=== PATIENT | female | born 1965 | race Hispanic/Latino ===

== ENCOUNTER 2017-01-03 19:47 | Inpatient (IN) | payer MEDICARE, BC ==
--- NOTE | 2017-01-03 20:12 | ED PDOC ---
Arrival/HPI - General Chief Complaint: Syncope Time Seen by Provider: 01/03/17 20:02 Historian: Patient - History of Present Illness Narrative History of Present Illness (Text): 01/03/17 20:09 A 51 year old female presents to the emergency department complaining of near syncopal sensation, fatigue, and weakness for 1-2 weeks. Patient denies of any chest pain, shortness of breath, dyspnea upon exertion, or any other complaints. PMD: Dr. Liu Time/Duration: < week (1-2 weeks) Symptom Onset: Gradual Symptom Course: Unchanged Past Medical History - Provider Review Nursing Documentation Reviewed: Yes - Infectious Disease Hx of Infectious Diseases: None - Cardiac Hx Pacemaker: No - Pulmonary Hx Respiratory Disorders: No - Neurological Hx Paralysis: No Other/Comment: h/o lyme disease - HEENT Hx HEENT Disorder: No - Renal Hx Renal Disorder: Yes Hx Pyelonephritis: Yes (11-29-15) Other/Comment: h/o nephrostomy - Endocrine/Metabolic Hx Endocrine Disorders: Yes Hx Hyperthyroidism: Yes Other/Comment: nick's dx - Hematological/Oncological Hx Blood Transfusions: No (REFUSED AT ONE TIME) - Integumentary Hx Dermatological Disorder: No - Musculoskeletal/Rheumatological Hx Musculoskeletal Disorders: Yes (LYME) - Gastrointestinal Hx Gastrointestinal Disorders: No (CONSTIPATION) - Genitourinary/Gynecological Hx Genitourinary Disorders: (FIBROIDS) Other/Comment: L hydronephrosis - Psychiatric Hx Emotional Abuse: No Hx Physical Abuse: No Hx Substance Use: No - Past Surgical History Past Surgical History: Non-Contributing - Surgical History Other/Comment: nephrostomy - Anesthesia Hx Anesthesia: Yes Hx Anesthesia Reactions: Yes (AGITATION) - Suicidal Assessment Feels Threatened In Home Enviroment: No Family/Social History - Physician Review Nursing Documentation Reviewed: Yes Family/Social History: No Known Family HX Smoking Status: Never Smoked Hx Alcohol Use: No Hx Substance Use: No Allergies/Home Meds Allergies/Adverse Reactions: Allergies No Known Allergies Allergy (Verified 12/29/15 11:53) Home Medications: Home Meds Medication Instructions Recorded Confirmed traMADol [Ultram] 50 mg PO PRN PRN 12/29/15 01/04/17 Alprazolam [Xanax] 0.5 mg PO HS 01/04/17 01/04/17 Buprenorphine HCl/Naloxone HCl 2 mg PO DAILY 01/04/17 01/04/17 [Suboxone 2 mg-0.5 mg Sl Film] Levothyroxine [Synthroid] 25 mcg PO DAILY 01/04/17 01/04/17 Lisdexamfetamine Dimesylate 30 mg PO DAILY 01/04/17 01/04/17 [Vyvanse] Venlafaxine [Effexor XR] 150 mg PO DAILY 01/04/17 01/04/17 Physical Exam - Physical Exam Narrative Physical Exam (Text): 01/03/17 20:08 - Review of Systems Constitutional: Fatigue. absent: Weight Change, Fevers Eyes: Normal ENT: denies sore throat, denies tristhmus Respiratory: Normal. absent: SOB, Cough, Sputum Cardiovascular: Near Syncopal episode. absent: Chest Pain, Palpitations Gastrointestinal: Normal. absent: Abdominal Pain, Diarrhea, Nausea, Vomiting Genitourinary: Normal. absent: Dysuria, Frequency, Hematuria, vaginal bleeding Musculoskeletal: Normal. absent: Arthralgias, Back Pain, Neck Pain Skin: no rashes, no erythema Neurological: Focal Weakness Endocrine: Normal Hemo/Lymphatic: Normal Psychiatric: No suicidal or homicidal ideations Physical exam Patient appears age appropriate in no distress, speaking full sentences without difficulty - Systems Exam Head: Present: Atraumatic, Normocephalic Pupils: Present: PERRL Extroacular Muscles: Present: EOMI Conjunctiva: Present: Normal Mouth: Present: Moist Mucous Membranes Neck: Present: Normal Range of Motion. No: MIDLINE TENDERNESS, Paraspinal Tenderness Respiratory/Chest: Present: Clear to Auscultation, Good Air Exchange. No: Respiratory Distress, Accessory Muscle Use, Tachypneic Cardiovascular: Present: Regular Rate and Rhythm, Normal S1, S2, Peripheal Pulses Present. No: Murmurs Abdomen: Present: Normal Bowel Sounds. No: Tenderness, Distention, Peritoneal Signs, Rebound, Guarding Back: Present: Normal Inspection. No: Midline Tenderness, Paraspinal Tenderness Upper Extremity: Present: Normal Inspection. No: Cyanosis, Edema Lower Extremity: Present: Normal Inspection. No: Edema Neurological: Present: GCS=15, Speech Normal, cranial nerves II through XII fully intact with no cerebellar abnormality, neurosensory fully intact. No focal neurological deficits. Skin: Present: Warm, Dry, Normal Color. Eczematous appearing rash over patient' s chin Lymphatic: Present: OX3, NI, NC Psychiatric: Present: Alert, Oriented x 3, Normal Insight, Normal Concentration Vital Signs Reviewed: Yes Vital Signs Temp Pulse Resp BP Pulse Ox 01/04/17 11:00 76 16 142/85 98 01/04/17 07:58 80 18 134/87 98 01/04/17 03:30 98.2 F 76 16 124/76 99 01/04/17 00:30 92 H 18 128/61 98 01/03/17 20:31 98.5 F 97 H 18 131/64 94 L Temperature: Afebrile Blood Pressure: Normal Pulse: Regular Respiratory Rate: Normal Appearance: Positive for: Well-Appearing Pain Distress: None Mental Status: Positive for: Alert and Oriented X 3 Medical Decision Making ED Course and Treatment: 01/03/17 20:12 Impression: 51 year old female with near syncopal sensation, fatigue, and weakness. No acute findings on physical examination. Plan: -- Head CT -- Chest X-ray -- Labs -- Reassess and disposition Prior Visits: Notes and results from previous visits were reviewed. Patient was last seen in the emergency department on 11/29/2015 for left flank pain. Patient was admitted. Progress Notes: EKG shows NSR at [address]-segment elevations, normal intervals. Interpreted by me. Dr. Mendez brought in patient and said to place under observation under her service on tele for near syncope w/u. Patient is aware and agrees with plan. 01/04/17 00:13 CT Head Without Intravenous Contrast : Creator : KELECHI JAIN FINDINGS: Brain: No acute intracranial hemorrhage. No significant white matter disease. No edema. Ventricles: No significant ventriculomegaly. Bones: No acute displaced fracture. Sinuses: Unremarkable as visualized. No acute sinusitis. Mastoid air cells: Unremarkable as visualized. No mastoid effusion. IMPRESSION: No acute intracranial hemorrhage, or suspicious mass effect. - Lab Interpretations Lab Results: 01/03/17 21:15 01/03/17 21:15 Lab Results 01/03/17 21:18: POC Glucose (mg/dL) 97 01/03/17 21:15: Free T4 1.26, TSH 3rd Generation 1.25 01/03/17 21:15: Sodium 143, Potassium 3.8, Chloride 103, Carbon Dioxide 31, Anion Gap 13, BUN 11, Creatinine 1.0, Est GFR ( Amer) > 60, Est GFR (Non- Af Amer) 59, Random Glucose 82, Calcium 9.8, Total Bilirubin 0.4, AST 31, ALT 26 , Alkaline Phosphatase 60, Lactate Dehydrogenase 538, Total Creatine Kinase 120 , Troponin I < 0.01, Total Protein 7.4, Albumin 4.5, Globulin 2.9, Albumin/ Globulin Ratio 1.6 01/03/17 21:15: PT 11.2, INR 1.04, APTT 27.1 01/03/17 21:15: WBC 6.4, RBC 4.14, Hgb 12.6, Hct 36.5, MCV 88.2, MCH 30.4, MCHC 34.5, RDW 12.8, Plt Count 241, MPV 9.7, Gran % 59.3, Lymph % (Auto) 32.6, [place] % (Auto) 7.3 H, Eos % (Auto) 0.5 L, Baso % (Auto) 0.3, Gran # 3.81, Lymph # 2.1 , Berks # 0.5, Eos # 0.0, Baso # 0.02 - RAD Interpretation Radiology Orders: 01/03/17 20:03 HEAD W/O CONTRAST [CT] Stat 01/03/17 22:26 CHEST PORTABLE [RAD] Stat - Medication Orders Current Medication Orders: Acetaminophen (Tylenol 325mg Tab) 650 mg PO Q4 PRN PRN Reason: Pain, Mild (1-3) Last Admin: 01/05/17 15:01 Dose: 650 mg [facility] Pain/Vitals Document 01/05/17 15:01 JORDYN (Rec: 01/05/17 15:02 [id number] Pain Reassessment Is This A Pain ReAssessment? No Sleep Is patient sleeping during reassessment? No Presence of Pain Presence of Pain Yes Pain Scale Used Pain Scale Used Numeric Location Left, Right or Bilateral Left Pain Location Body Site Neck Description Constant Intensity 6 Pain Behavior Irritability Aggravating Factors None Re-Assess: [facility] Pain/Vitals Document 01/05/17 16:01 JORDYN (Rec: 01/05/17 18:30 JORDYN [facility] [id number]) Pain Reassessment Is This A Pain ReAssessment? Yes Sleep Is patient sleeping during reassessment? No Presence of Pain Presence of Pain Yes Pain Scale Used Pain Scale Used Numeric Location Left, Right or Bilateral Bilateral Pain Location Body Site Neck Intensity 5 Scale Used Numeric Alprazolam (Xanax) 0.25 mg PO Q8H PRN; Protocol PRN Reason: Anxiety Stop: 01/11/17 08:31 Last Admin: 01/04/17 10:59 Dose: 0.25 mg Clonazepam (Klonopin) 0.5 mg PO BID [facility] PRN Reason: Protocol Last Admin: 01/07/17 09:29 Dose: 0.5 mg Comments: Patient only takes 0.25 Behavioural Document 01/07/17 09:29 (Rec: 01/07/17 09:29 [id number]) Maintenance Maintenance Dose Yes Clotrimazole (Lotrimin 1%) 0 gm TOP BID [facility] Last Admin: 01/07/17 09:30 Dose: 1 applic Home Med (Home Med) 0.5 unit SL DAILY PRN PRN Reason: Pain, severe (8-10) Cefazolin Sodium (Ancef 1gm In Ns) 1 gm in 100 mls @ 100 mls/hr IVPB Q8 ASHLEE PRN Reason: Protocol Levothyroxine Sodium (Synthroid) 25 mcg PO 0600 [facility] Last Admin: 01/07/17 06:46 Dose: 25 mcg Mupirocin (Bactroban Ointment) 0 gm TOP BID [facility] Last Admin: 01/07/17 09:28 Dose: 1 applic Polyethylene Glycol (Miralax) 17 gm PO DAILY [facility] Tizanidine HCl (Zanaflex) 4 mg PO HS [facility] Last Admin: 01/06/17 22:25 Dose: 4 mg Venlafaxine HCl (Effexor Xr) 150 mg PO DAILY [facility] Last Admin: 01/07/17 09:29 Dose: 150 mg Discontinued Medications Home Med (Home Med) 1 unit PO PRN PRN PRN Reason: Pain, moderate (4-7) Home Med (Home Med) 0.5 unit PO DAILY PRN PRN Reason: Pain, severe (8-10) Ibuprofen (Motrin Tab) 600 mg PO TID [facility] Last Admin: 01/06/17 14:32 Dose: Not Given Non-Admin Reason: Patient Refused Suboxone 0.5 Mg ( (Home Med)) 0.5 mg PO DAILY PRN PRN Reason: Pain, severe (8-10) Polyethylene Glycol (Miralax) 17 gm PO DAILY PRN PRN Reason: Constipation Last Admin: 01/05/17 22:44 Dose: 17 gm Tramadol HCl (Ultram) 50 mg PO Q8H PRN PRN Reason: Pain, moderate (4-7) Last Admin: 01/04/17 21:07 Dose: 50 mg MAR Pain Assessment Document 01/04/17 21:07 [facility] (Rec: 01/04/17 21:07 [facility] [id number]) Pain Reassessment Is this a pain reassessment? No Sleep Is patient sleeping during reassessment? No Presence of Pain Presence of Pain Yes Pain Scale Used Pain Scale Used Numeric Location Pain Location Body Site Generalized Description Description Chronic Intensity of Pain at present 5 - Scribe Statement The provider has reviewed the documentation as recorded by the Dianaibjennifer Chang Provider Scribe Attestation: All medical record entries made by the Scribe were at my direction and personally dictated by me. I have reviewed the chart and agree that the record accurately reflects my personal performance of the history, physical exam, medical decision making, and the department course for this patient. I have also personally directed, reviewed, and agree with the discharge instructions and disposition. Disposition/Present on Arrival - Present on Arrival Any Indicators Present on Arrival: No History of DVT/PE: No History of Uncontrolled Diabetes: No Urinary Catheter: No History of Decub. Ulcer: No History Surgical Site Infection Following: None - Disposition Have Diagnosis and Disposition been Completed?: Yes Diagnosis: Near syncope Disposition: HOSPITALIZED Disposition Time: 20:12 Patient Plan: Observation Condition: FAIR
[2017-01-03 21:38] VITALS: BMI 40.7
[2017-01-03] MEDS ORDERED: SUBOXONE PO PRN (21:39)
[2017-01-03 21:40] LABS: ALB/GLOB RATIO 1.6 (1.1-1.8); ALKALINE PHOSPHATASE 60 U/L (38-126); ALT/SGPT 26 U/L (7-56); AST/SGOT 31 U/L (14-36); BILIRUBIN,TOTAL 0.4 mg/dL (0.2-1.3); BLOOD UREA NITROGEN 11 mg/dL (7-21); CALCIUM 9.8 mg/dL (8.4-10.5); CARBON DIOXIDE 31 mmol/L (21-33); CHLORIDE 103 mmol/L (98-107); GFR AFRICAN-AMERICAN > 60; GLUCOSE,RANDOM 82 mg/dL (70-110); POTASSIUM 3.8 mmol/L (3.6-5.0); SODIUM 143 mmol/L (132-148); TOTAL PROTEIN 7.4 g/dL (5.8-8.3)
[2017-01-03] MEDS ORDERED: POLYETHYLENE GLYCOL 3350 17 GM/Dose PACKET PO PRN (21:43)
[2017-01-03 21:47] LABS: BASO # 0.02 K/mm3 (0.0-2.0); BASO % 0.3 % (0.0-3.0); EOS % 0.5 % (1.5-5.0); GRAN # 3.81 (1.4-6.5); GRAN % 59.3 % (50.0-68.0); HEMATOCRIT 36.5 % (36.0-48.0); LYMPH # 2.1 (1.2-3.4); LYMPH % 32.6 % (22.0-35.0); MEAN CELL VOLUME 88.2 fl (80.0-105.0); MEAN CORPUSCULAR HEMOGLOBIN 30.4 pg (25.0-35.0); MEAN CORPUSCULAR HGB CONC 34.5 g/dl (31.0-37.0); MEAN PLATELET VOLUME 9.7 fl (7.0-11.0); MONO # 0.5 (0.1-0.6); MONO % 7.3 % (1.0-6.0); RED CELL DISTRIBUTION WIDTH 12.8 % (11.5-14.5); WHITE BLOOD COUNT 6.4 10^3/ul (4.5-11.0)
[2017-01-03 21:54] LABS: INR 1.04 (0.93-1.08); PARTIAL THROMBOPLASTIN TIME 27.1 Seconds (23.7-30.8)
[2017-01-03 22:07] LABS: TROPONIN I < 0.01 ng/mL
[2017-01-03 22:09] LABS: FREE T4 1.26 ng/dL (0.78-2.19)
[2017-01-03 22:23] LABS: THYROID STIMULATING HORMONE 1.25 mIU/mL (0.46-4.68)
--- NOTE | 2017-01-03 23:27 | CT ---
EXAM: CT Head Without Intravenous Contrast CLINICAL HISTORY: 51 years old, female; Signs and symptoms; Syncope and collapse; Additional info: Near syncope TECHNIQUE: Axial computed tomography images of the head/brain without intravenous contrast. All CT scans at this facility use one or more dose reduction techniques, viz.: automated exposure control; ma/kV adjustment per patient size (including targeted exams where dose is matched to indication; i.e. head); or iterative reconstruction technique. COMPARISON: No relevant prior studies available. FINDINGS: Brain: No acute intracranial hemorrhage. No significant white matter disease. No edema. Ventricles: No significant ventriculomegaly. Bones: No acute displaced fracture. Sinuses: Unremarkable as visualized. No acute sinusitis. Mastoid air cells: Unremarkable as visualized. No mastoid effusion. IMPRESSION: No acute intracranial hemorrhage, or suspicious mass effect.
--- NOTE | 2017-01-04 02:42 | HP ---
This is Mckenna Miranda's admission to the telemetry floor. For Dr. Liu. CHIEF COMPLAINT: Presyncope. HISTORY OF PRESENT ILLNESS: The patient is a 51-year-old female who presented to the Dr. Liu's office this evening reporting fatigue, weakness with presyncopal type sensation almost passing out, lightheadedness for approximately 1-2 weeks, and getting worse with associated weakness. With this, the patient was evaluated in the office and recommended to be brought to the emergency room for admission evaluation. The patient is reporting that she has had treatment in the past for exposure to bedbugs that were in her home in [place] for which she then was treated after she left the area and went to [place] and treated there with permethrin and another medication. She reports that this was in July with return in October to [place] with a further exposure, but again to the same disease process with second treatment also recommended and given with the lotion only. Since that time, she has thought treatment from different medical practitioners in the area with recommendations from one physician for her to have an infectious disease evaluation for parasite infestation ?. At present, the patient is to be admitted for evaluation of above symptoms with the patient unsafe to possibly to be driving her car at this point with the patient known to have suffered from positive findings for Lyme disease in the past with neurologic symptoms. PAST MEDICAL HISTORY: Significant for elevated CA125 testing with follow up with Dr. 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 Bradley Trevino and left pyelonephritis. History of opioid dependence after being prescribed treatment for pain for ankle surgery. Hypothyroidism. ALLERGIES: NO KNOWN ALLERGIES. MEDICATIONS: Include Suboxone, Synthroid, tramadol, and Flexeril p.r.n. FAMILY HISTORY AND SOCIAL HISTORY: Nonsmoker. Nonethanolic. 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 No children. . REVIEW OF SYSTEMS: A 12-point review of systems was done negative to questions except as above. Except for the patient now reporting that she has facial lesions, which appeared to be impetiginous since she reports after she had anesthesia with mask placed over her face in the past with the patient's nonpruritic. She also reports travel to the [place] in April of this year. PHYSICAL EXAMINATION: VITAL SIGNS: Temperature 98.5, pulse 97, respirations 18, blood pressure 131/64, and pulse ox 94%. HEENT: She has what appear to be pustular cystic changes to her chin and cheeks bilaterally with isolated changes, skin changes to her arms, legs and abdomen. NECK: Supple. HEART: Tachy rate, regular rhythm. LUNGS: Clear. ABDOMEN: Soft and nontender. EXTREMITIES: No edema. SKIN: Warm and dry except for what appear to be impetiginous lesions of her face. NEUROLOGIC: Awake, alert, and oriented x3. LABORATORY DATA: The patient's labs were done and will be reviewed upon return with chem metabolic panel within normal limits. Troponin pending. ASSESSMENT: For this patient is that of presyncope rule out cardiology versus neurologic etiology, impetigo rule out parasitic infestation, chronic pain, history of pyelonephritis, status post stenting with percutaneous nephrostomy tube, history of anemia with history of hypothyroidism with Leopoldo's thyroiditis, history of Lyme disease, and constipation. PLAN: Plan for this patient after conservation with Dr. Liu is to continue present medical regimen with consult with Dr. Rutledge, neurology; Dr. Loya, cardiology; and Dr. Arredondo, infectious disease. We will continue her Suboxone nonformulary with Synthroid. We will check TSH and her labs. We will offer tramadol for moderate pain with MiraLax as needed for constipation. We will also give Bactroban topical to her chin and face lesions with further workup and testing and antibiotics as per Dr. Arredondo as indicated monitor clinically with labs. Alonso Mendez MD
[2017-01-04 07:55] LABS: BASO # 0.03 K/mm3 (0.0-2.0); BASO % 0.5 % (0.0-3.0); EOS # 0.1 (0.0-0.7); EOS % 1.2 % (1.5-5.0); GRAN # 3.49 (1.4-6.5); GRAN % 59.7 % (50.0-68.0); HEMATOCRIT 34.2 % (36.0-48.0); LYMPH # 1.8 (1.2-3.4); LYMPH % 30.1 % (22.0-35.0); MEAN CELL VOLUME 87.5 fl (80.0-105.0); MEAN CORPUSCULAR HEMOGLOBIN 30.4 pg (25.0-35.0); MEAN CORPUSCULAR HGB CONC 34.8 g/dl (31.0-37.0); MEAN PLATELET VOLUME 9.5 fl (7.0-11.0); MONO # 0.5 (0.1-0.6); MONO % 8.5 % (1.0-6.0); RED CELL DISTRIBUTION WIDTH 12.8 % (11.5-14.5); WHITE BLOOD COUNT 5.9 10^3/ul (4.5-11.0)
[2017-01-04] MEDS: Levothyroxine 25 MCG TAB PO SCH (08:05)
[2017-01-04 08:26] LABS: ALB/GLOB RATIO 1.5 (1.1-1.8); ALKALINE PHOSPHATASE 58 U/L (38-126); ALT/SGPT 23 U/L (7-56); AST/SGOT 29 U/L (14-36); BILIRUBIN,TOTAL 0.6 mg/dL (0.2-1.3); BLOOD UREA NITROGEN 10 mg/dL (7-21); CALCIUM 9.3 mg/dL (8.4-10.5); CARBON DIOXIDE 30 mmol/L (21-33); CHLORIDE 104 mmol/L (98-107); GFR AFRICAN-AMERICAN > 60; GLUCOSE,RANDOM 81 mg/dL (70-110); POTASSIUM 3.9 mmol/L (3.6-5.0); SODIUM 142 mmol/L (132-148); TOTAL PROTEIN 6.8 g/dL (5.8-8.3)
--- NOTE | 2017-01-04 08:30 | RAD ---
HISTORY: admission COMPARISON: 02/26/2009 FINDINGS: LUNGS: The lungs are well inflated and clear of. PLEURA: No significant pleural effusion identified, no pneumothorax apparent. CARDIOVASCULAR: Normal. OSSEOUS STRUCTURES: No significant abnormalities. VISUALIZED UPPER ABDOMEN: Normal. OTHER FINDINGS: None. IMPRESSION: No active pulmonary disease.
[2017-01-04] MEDS ORDERED: SUBOXONE PO PRN (12:52)
[2017-01-04] MEDS ORDERED: Home Med 1 UNIT PO PRN ×2 (14:36→14:52)
[2017-01-04] MEDS ORDERED: SUBOXONE 8 MG SL PRN (15:03)
--- NOTE | 2017-01-04 16:04 | CP.PCM.CON ---
History of Present Illness - History of Present Illness History of Present Illness: 51 year old female with PMH of apparent Lyme disease infection, Nick thyroid disease, history of sepsis due to E. coli pyelonephritis S/P nephrostomy tube placement (2015), history of depression, came in to [facility] complaining of generalized fatigue and weakness for the past 2 weeks. She was apparently in [place] for a few months and while she was there, was complaining of having skin lesions which were pruritic and was apparently treated for bed bugs with Permethrin cream and Ivermectin. Since taking the Ivermectin she has been complaining of bumps and lumps on her legs, and posterior trunk which occasionally become painful. She has apparently been bitten by quite a few bugs over several months. She denies fever or chills, no nausea or vomiting, no headache or dizziness, no abdominal pain, no diarrhea, no dysuria. She was seen in a hospital and had to have anethesia given and she had a ventimask placed over her face, and now she is complaining that she has occasionally painful erythematous skin lesions on her face. Infectious Diseases consult is requested to further evaluate and manage. Review of Systems - Review of Systems All systems: reviewed and no additional remarkable complaints except (as per HPI ) Past Patient History - Infectious Disease Hx of Infectious Diseases: None - Past Social History Smoking Status: Never Smoked - CARDIAC Hx Pacemaker: No - PULMONARY Hx Respiratory Disorders: No - NEUROLOGICAL Hx Paralysis: No Other/Comment: h/o lyme disease - HEENT Hx HEENT Problems: No - RENAL Hx Chronic Kidney Disease: Yes Hx Pyelonephritis: Yes (11-29-15) Other/Comment: h/o nephrostomy - ENDOCRINE/METABOLIC Hx Endocrine Disorders: Yes Hx Hyperthyroidism: Yes Other/Comment: nick's dx - HEMATOLOGICAL/ONCOLOGICAL Hx Blood Transfusions: No (REFUSED AT ONE TIME) - INTEGUMENTARY Hx Dermatological Problems: No - MUSCULOSKELETAL/RHEUMATOLOGICAL Hx Musculoskeletal Disorders: Yes (LYME) - GASTROINTESTINAL Hx Gastrointestinal Disorders: No (CONSTIPATION) - GENITOURINARY/GYNECOLOGICAL Hx Genitourinary Disorders: (FIBROIDS) Other/Comment: L hydronephrosis - PSYCHIATRIC Hx Emotional Abuse: No Hx Physical Abuse: No Hx Substance Use: No - SURGICAL HISTORY Other/Comment: nephrostomy - ANESTHESIA Hx Anesthesia: Yes Hx Anesthesia Reactions: Yes (AGITATION) Meds Allergies/Adverse Reactions: Allergies Allergy/AdvReac Type Severity Reaction Status Date / Time No Known Allergies Allergy Verified 12/29/15 11:53 - Medications Medications: Current Medications Acetaminophen (Tylenol 325mg Tab) 650 mg PO Q4 PRN PRN Reason: Pain, Mild (1-3) Levothyroxine Sodium (Synthroid) 25 mcg PO 0600 ASH[facility]E Mupirocin (Bactroban Ointment) 0 gm TOP BID [facility] Last Admin: 01/03/17 22:10 Dose: 2 % Suboxone 0.5 Mg ( (Home Med)) 0.5 mg PO DAILY PRN PRN Reason: Pain, severe (8-10) Polyethylene Glycol (Miralax) 17 gm PO DAILY PRN PRN Reason: Constipation Tramadol HCl (Ultram) 50 mg PO Q8H PRN PRN Reason: Pain, moderate (4-7) Physical Exam - Constitutional Appears: Non-toxic, No Acute Distress - Head Exam Head Exam: NORMAL INSPECTION - ENT Exam ENT Exam: Mucous Membranes Moist - Neck Exam Neck exam: Negative for: Meningismus - Respiratory Exam Respiratory Exam: Decreased Breath Sounds - Cardiovascular Exam Cardiovascular Exam: +S1, +S2 - GI/Abdominal Exam GI & Abdominal Exam: Soft. absent: Tenderness - Skin Additional comments: some circular, erythematous, excoriated skin lesions on the right chin area, left malar area, without pus, bleeding or discharge, non-tender to palpation; also with some dark ovoid patches on her legs which have some tenderness, no discharge, no pus, no bleeding noted Results - Vital Signs Recent Vital Signs: Last Vital Signs Temp 98.5 F 01/03/17 20:31 Pulse 92 H 01/04/17 00:30 Resp 18 01/04/17 00:30 BP 128/61 01/04/17 00:30 Pulse Ox 98 01/04/17 00:30 - Labs Result Diagrams: 01/04/17 07:52 01/04/17 07:52 Assessment & Plan - Assessment and Plan (Free Text) Plan: Assessment Multiple skin lesions on the face, legs R/O fungal disease; patient with history of apparent bed bug bites apparent Lyme disease infection history of sepsis due to E. coli pyelonephritis S/P nephrostomy tube placement ( 2015) history of depression Nick thyroid disease Plan Will give Clotrimazole cream and Bactroban ointment over the skin lesions Follow up stool for ova and parasites will monitor clinical response
--- NOTE | 2017-01-04 16:06 | CARD ---
APPROVED REPORT EXAM: Two-dimensional and M-mode echocardiogram with Doppler and color Doppler. INDICATION Syncope 2D DIMENSIONS Left Atrium (2D)4.0 (1.6-4.0cm)IVSd0.8 (0.7-1.1cm) LVDd3.7 (3.9-5.9cm)PWd1.0 (0.7-1.1cm) LVDs2.5 (2.5-4.0cm)FS (%) 31.9 % LVEF (%)60.9 (>50%) M-Mode DIMENSIONS Aortic Root2.60 (2.2-3.7cm)Aortic Cusp Exc.1.60 (1.5-2.0cm) Aortic Valve AoV Peak Cwpyswih584.0cm/Sonya Peak GR.9mmHg Mitral Valve MV E Xkkgucjk75.2cm/sMV A Jecqcsxm14.6cm/sE/A ratio1.0 TDI Lateral E' Peak V16.20cm/sMedial E' Peak V10.10cm/sE/Lateral E'4.0 E/Medial E'6.5 Pulmonary Valve PV Peak Olufswip14.9cm/sPV Peak Grad.3mmHg Tricuspid Valve TR Peak Ldqobznu309oa/sRAP MKMEDGEA74tjQsZN Peak Gr.12mmHg [id number] LEFT VENTRICLE The left ventricle is normal size. There is normal left ventricular wall thickness. The left ventricular function is normal.EF-55-60% There is normal LV segmental wall motion. Transmitral Doppler flow pattern is Grade III-reversible restrictive diastolic dysfunction. No left ventricle thrombus noted on this study. There is no ventricular septal defect visualized. There is no left ventricular aneurysm. There is no mass noted in the left ventricle. RIGHT VENTRICLE The right ventricle is normal size. There is normal right ventricular wall thickness. The right ventricular systolic function is normal. ATRIA The left atrium is borderline dilated. The right atrium size is normal. The atrial septum is aneurysmal. AORTIC VALVE The aortic valve is thickened but opens well. There is trace aortic regurgitation. There is no aortic valvular stenosis. There is no aortic valvular vegetation. MITRAL VALVE The mitral valve is thickened but opens well. Mitral regurgitation is mild. There is no mitral valve stenosis. There is no evidence of mitral valve prolapse. TRICUSPID VALVE The tricuspid valve leaflets are thickened , but open well. There is trace tricuspid regurgitation.RVSP_22 mmof Hg. There is no tricuspid valve stenosis. There is no tricuspid valve prolapse or vegetation. PULMONIC VALVE The pulmonic valve is not well visualized. GREAT VESSELS The aortic root is normal in size. The ascending aorta is normal in size. The pulmonary artery is normal. The IVC is normal in size and collapses >50% with inspiration. PERICARDIAL EFFUSION There is no pleural effusion. There is no pericardial effusion. <Conclusion> The left ventricle is normal size. There is normal left ventricular wall thickness. The left ventricular function is normal.EF-55-60% There is trace aortic regurgitation. Mitral regurgitation is mild. There is trace tricuspid regurgitation.RVSP_22 mmof Hg. The IVC is normal in size and collapses >50% with inspiration. There is no pericardial effusion. NO Vegetation or thrombus noted.
--- NOTE | 2017-01-04 17:38 | CP.PCM.CON ---
<Rip Ling - Last Filed: 01/04/17 19:14> History of Present Illness - History of Present Illness History of Present Illness: Neurology Consult Note for Dr. 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 Of note, patient was just seen in the outpatient office by Dr. Rutledge 3 days prior to presentation, and was instructed to follow up with Endocrinology regarding her TPO antibioties/possible Hishimoto's. Patient reports recent travel to [place], and while there, developed multiple rashes/insect bite feliz consistent with Bed-Bugs, which she was treated for. However, the rashes and bites have continued since returning home , making her concerned that her home is now infested. Patient reports feeling overwhelmed in general regarding her medical conditions, including this most recent development, include social stressors (reports monty isn't doing anything about the bed-bugs at home, doesn't seem to care). She denies most other symptoms, including chest pain, shortness of breath, nausea/emesis, focal weakness/paresthesias, actual syncope, acute changes in vision, fever/chills, or diarrhea/constipation. Does admit to persisting rashes/scabs, intermittently pruritic and intermittently painful. All other ROS in 12-point system review negative. PMH: as above PSH: Nephrostomy FHx: Ovarian Ca SHx: Denies tobacco/alcohol/illicits/IVDA PMD: Dr. Liu Review of Systems - Review of Systems All systems: reviewed and no additional remarkable complaints except (as per HPI ) Past Patient History - Infectious Disease Hx of Infectious Diseases: None - Past Social History Smoking Status: Never Smoked - CARDIAC Hx Pacemaker: No - PULMONARY Hx Respiratory Disorders: No - NEUROLOGICAL Hx Paralysis: No Other/Comment: h/o lyme disease - HEENT Hx HEENT Problems: No - RENAL Hx Chronic Kidney Disease: Yes Hx Pyelonephritis: Yes (11-29-15) Other/Comment: h/o nephrostomy - ENDOCRINE/METABOLIC Hx Endocrine Disorders: Yes Hx Hyperthyroidism: Yes Other/Comment: nick's dx - HEMATOLOGICAL/ONCOLOGICAL Hx Blood Transfusions: No (REFUSED AT ONE TIME) - INTEGUMENTARY Hx Dermatological Problems: No - MUSCULOSKELETAL/RHEUMATOLOGICAL Hx Musculoskeletal Disorders: Yes (LYME) - GASTROINTESTINAL Hx Gastrointestinal Disorders: No (CONSTIPATION) - GENITOURINARY/GYNECOLOGICAL Hx Genitourinary Disorders: (FIBROIDS) Other/Comment: L hydronephrosis - PSYCHIATRIC Hx Emotional Abuse: No Hx Physical Abuse: No Hx Substance Use: No - SURGICAL HISTORY Other/Comment: nephrostomy - ANESTHESIA Hx Anesthesia: Yes Hx Anesthesia Reactions: Yes (AGITATION) Meds Allergies/Adverse Reactions: Allergies Allergy/AdvReac Type Severity Reaction Status Date / Time No Known Allergies Allergy Verified 12/29/15 11:53 - Medications Medications: Current Medications Acetaminophen (Tylenol 325mg Tab) 650 mg PO Q4 PRN PRN Reason: Pain, Mild (1-3) Alprazolam (Xanax) 0.25 mg PO Q8H PRN; Protocol PRN Reason: Anxiety Stop: 01/11/17 08:31 Last Admin: 01/04/17 10:59 Dose: 0.25 mg Clotrimazole (Lotrimin 1%) 0 gm TOP BID [facility] Home Med (Home Med) 0.5 unit SL DAILY PRN PRN Reason: Pain, severe (8-10) Levothyroxine Sodium (Synthroid) 25 mcg PO 0600 [facility] Last Admin: 01/04/17 08:05 Dose: 25 mcg Mupirocin (Bactroban Ointment) 0 gm TOP BID [facility] Last Admin: 01/03/17 22:10 Dose: 2 % Polyethylene Glycol (Miralax) 17 gm PO DAILY PRN PRN Reason: Constipation Tramadol HCl (Ultram) 50 mg PO Q8H PRN PRN Reason: Pain, moderate (4-7) Last Admin: 01/04/17 08:05 Dose: 50 mg Physical Exam - Constitutional Appears: Non-toxic, No Acute Distress, Other (anxious) - Head Exam Head Exam: ATRAUMATIC, NORMAL INSPECTION, NORMOCEPHALIC - Eye Exam Eye Exam: EOMI, Normal appearance, PERRL. absent: Conjunctival injection, Scleral icterus Pupil Exam: NORMAL ACCOMODATION, PERRL. absent: Fixed, Irregular, Unequal - ENT Exam ENT Exam: Mucous Membranes Moist - Neck Exam Neck exam: Negative for: Lymphadenopathy, Tenderness, Thyromegaly - Respiratory Exam Respiratory Exam: Clear to Auscultation Bilateral, NORMAL BREATHING PATTERN. absent: Accessory Muscle Use, Chest Wall Tenderness, Decreased Breath Sounds, Rales, Rhonchi, Wheezes - Cardiovascular Exam Cardiovascular Exam: REGULAR RHYTHM, RRR, +S1, +S2. absent: Bradycardia, Tachycardia, Irregular Rhythm, JVD - GI/Abdominal Exam GI & Abdominal Exam: Normal Bowel Sounds, Soft. absent: Distended, Firm, Rigid , Tenderness - Extremities Exam Extremities exam: Positive for: normal capillary refill, pedal pulses present. Negative for: calf tenderness, pedal edema, tenderness - Neurological Exam Neurological exam: Alert, CN II-XII Intact, Oriented x3 - Psychiatric Exam Psychiatric exam: Anxious, Normal Affect - Skin Skin Exam: Dry, Normal Color, Rash (scattered small lesions on trunk and extremities, scabs vs bug bites, mild tenderness to palpation at several sites) , Warm Results - Vital Signs Recent Vital Signs: Last Vital Signs Temp 97.6 F 01/04/17 12:00 Pulse 96 H 01/04/17 12:00 Resp 20 01/04/17 12:00 BP 132/71 01/04/17 12:00 Pulse Ox 98 01/04/17 11:00 - Labs Result Diagrams: 01/04/17 07:52 01/04/17 07:52 Labs: Laboratory Results - last 24 hr 01/04/17 01/04/17 07:52 07:52 WBC 5.9 RBC 3.91 Hgb 11.9 L Hct 34.2 L MCV 87.5 MCH 30.4 MCHC 34.8 RDW 12.8 Plt Count 207 MPV 9.5 Gran % 59.7 Lymph % (Auto) 30.1 [place] % (Auto) 8.5 H Eos % (Auto) 1.2 L Baso % (Auto) 0.5 Gran # 3.49 Lymph # 1.8 [place] # 0.5 Eos # 0.1 Baso # 0.03 Sodium 142 Potassium 3.9 Chloride 104 Carbon Dioxide 30 Anion Gap 12 BUN 10 Creatinine 0.9 Est GFR ( Amer) > 60 Est GFR (Non-Af Amer) > 60 Random Glucose 81 Calcium 9.3 Total Bilirubin 0.6 AST 29 ALT 23 Alkaline Phosphatase 58 Total Protein 6.8 Albumin 4.1 Globulin 2.7 Albumin/Globulin Ratio 1.5 Assessment & Plan - Assessment and Plan (Free Text) Assessment: This is a 51 yo F with PMH of Lyme's disease, Nephrostomy, fibroids, iron-deficiency anemia, and 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 Neurology was consulted for near-syncopal sx. Her symptoms do not appear to be neurological in nature, seem more due to general medical condition and anxieties regarding it. Head CT was negative for acute findings. Patient was instructed during outpatient visit with Dr. Rutledge to follow up with gaming pit boss as outpatient regarding her possible Nick 's; outpatient instructions reinforced to patient, who expressed understanding and agreement. Stable and clear for discharge from Neurology standpoint. Plan: 1) Continue Vyvanse for ADHD/Cognition 2) Gently Hydrate 3) F/u with Process Control Supervisor as outpatient Patient reviewed and discussed with attending, Dr. Rutledge <Derick Rutledge - Last Filed: 01/04/17 22:46> Meds - Medications Medications: Current Medications Acetaminophen (Tylenol 325mg Tab) 650 mg PO Q4 PRN PRN Reason: Pain, Mild (1-3) Alprazolam (Xanax) 0.25 mg PO Q8H PRN; Protocol PRN Reason: Anxiety Stop: 01/11/17 08:31 Last Admin: 01/04/17 10:59 Dose: 0.25 mg Clonazepam (Klonopin) 0.5 mg PO BID [facility] PRN Reason: Protocol Last Admin: 01/04/17 22:38 Dose: 0.5 mg Clotrimazole (Lotrimin 1%) 0 gm TOP BID [facility] Last Admin: 01/04/17 21:06 Dose: 1 applic Home Med (Home Med) 0.5 unit SL DAILY PRN PRN Reason: Pain, severe (8-10) Ibuprofen (Motrin Tab) 600 mg PO TID [facility] Levothyroxine Sodium (Synthroid) 25 mcg PO 0600 [facility] Last Admin: 01/04/17 08:05 Dose: 25 mcg Mupirocin (Bactroban Ointment) 0 gm TOP BID [facility] Last Admin: 01/04/17 21:05 Dose: 1 applic Polyethylene Glycol (Miralax) 17 gm PO DAILY PRN PRN Reason: Constipation Tizanidine HCl (Zanaflex) 4 mg PO HS [facility] Last Admin: 01/04/17 22:38 Dose: 4 mg Results - Vital Signs Recent Vital Signs: Last Vital Signs Temp 98 F 01/04/17 13:16 Pulse 71 01/04/17 18:00 Resp 20 01/04/17 13:16 BP 115/67 01/04/17 13:16 Pulse Ox 98 01/04/17 11:00 - Labs Result Diagrams: 01/04/17 07:52 01/04/17 07:52 Labs: Laboratory Results - last 24 hr 01/04/17 01/04/17 07:52 07:52 WBC 5.9 RBC 3.91 Hgb 11.9 L Hct 34.2 L MCV 87.5 MCH 30.4 MCHC 34.8 RDW 12.8 Plt Count 207 MPV 9.5 Gran % 59.7 Lymph % (Auto) 30.1 [place] % (Auto) 8.5 H Eos % (Auto) 1.2 L Baso % (Auto) 0.5 Gran # 3.49 Lymph # 1.8 [place] # 0.5 Eos # 0.1 Baso # 0.03 Sodium 142 Potassium 3.9 Chloride 104 Carbon Dioxide 30 Anion Gap 12 BUN 10 Creatinine 0.9 Est GFR ( Amer) > 60 Est GFR (Non-Af Amer) > 60 Random Glucose 81 Calcium 9.3 Total Bilirubin 0.6 AST 29 ALT 23 Alkaline Phosphatase 58 Total Protein 6.8 Albumin 4.1 Globulin 2.7 Albumin/Globulin Ratio 1.5 Attending/Attestation - Attestation I have personally seen and examined this patient.: Yes I have fully participated in the care of the patient.: Yes I have reviewed all pertinent clinical information: Yes
--- NOTE | 2017-01-04 20:41 | PN ---
DATE: LOCATION: Room 271, bed 1. SUBJECTIVE: The patient was admitted to the emergency room after being seen in the office that she is being followed by us for several reasons including iron deficiency anemia, prior history of Lyme infection, Leopoldo's thyroiditis, and elevated CA of 125, also history of left hydronephrosis with pyonephrosis treated with percutaneous nephrostomy drainage and to a IV antibiotics status post urethral stent, which was since then removed and placed in [facility], now was seen in the office with new complaint of generalized fatigue, weakness of the past two weeks. The patient had been in [place] for few months when there was complaining of skin lesions and they were apparently pruritic and she was treated for beg bug with permethrin cream and ivermectin. The patient seems to be taking the medicines and has been complaining of lumps and bumps on her legs posterior trunk, which became painful. She apparently has been bitten by quite a few bugs in the past few months. Denies any history of fevers or chills. No nausea, vomiting, dizziness, abdominal pain, diarrhea, dysuria. She was in [facility] recently where she had to have her stent removed after she had been placed initially for urethral stricture and biopsy. At that time, she had a venti mask placed over her face and she is complaining that she has occasionally painful erythematous skin lesions on her face,which look like impetigo to me. The patient is now admitted to the hospital with near syncope and while in the hospital, was asked her ID to see her as well. Subjectively, the patient reports to me that when she had a CAT scan, she has lot of hives post CAT scan probably related to the CAT scan dye. I told her we will keep an eye on it, but more importantly, my concern is prior history of having had exposure to bugs and had [place] [facility] the question is she could have been exposed to any paracytic infections as well. PHYSICAL EXAMINATION: GENERAL: The patient is awake, alert, and oriented in no significant distress. She is comfortable. VITAL SIGNS: T-max is 98.4, pulse is 92, respirations 18, blood pressure is 128/61, pulse ox is 98%. HEENT: Head is normocephalic and atraumatic. Conjunctiva pale. Sclerae is anicteric. Pupils are equal and reactive to light and accommodation. The patient has acne form eruptions around the perioral area and on the either side of the nasolabial folds consistent with secondary infections of lesions. It could be an impetigo. Examination of the lower pharynx reveals no oropharyngeal lesions. NECK: Supple. There is no adenopathy. LUNGS: Clear to percussion and auscultation. HEART: Reveals S1 and S2 to be normal. ABDOMEN: Soft and nontender. Bowel sounds are present. Liver and spleen are palpable. No rebound, rigidity or guarding is noted. CARDIOVASCULAR: Reveals PMI to be in fifth intercostal space. S1 and S2 are normal. No gallop or murmur is heard. EXTREMITIES: Reveals no cyanosis, clubbing, or edema. SKIN: Reveals circular erythematous excoriate lesions on the right chin area, left malar area, without pus, bleeding, or drainage. Nontender to palpation along with darker white patches on her legs, which has some tenderness. No discharge. No pus. No bleeding is noted. LABORATORY DATA: Reveals a white count of 5.9, hemoglobin 11.9, hematocrit 34.2, platelet count 207,000. Sodium is 142, K is 3.9, chloride is 104, CO2 is 30, BUN is 10, creatinine is 0.9, blood sugar is 81. ASSESSMENT NOTES AND PLAN: The patient had a presyncopal episode, etiology of which is unclear. We are monitoring it very carefully. The patient has a multiple skin lesions on the face, legs, rule out fungal disease. The patient has a history of apparent bug bite in the past, history of apparent lung infection, Lyme disease, infection treated for 14 days with IV Rocephin, history of sepsis due to Escherichia coli pyelonephrosis status post nephrotomy tube placement in 2016 status post cysto and placement of a urethral stent left ureter along with the biopsy of the ureter which was negative. Cost for the stricture and hydrosyntheses at this point is unclear. Plan, we will continue the current medications. She is going to be treated with clotrimazole cream along with the Bactroban pending further detailed investigation. The patient is going to have stool sent for ova and parasites and we will monitor the clinical response based on the current treatment that she is on. Routine post-exam instructions have been given to the patient. Adria Liu MD
[2017-01-04] MEDS: Clotrimazole 1% Cream(30 gm) TOP SCH (21:06)
--- NOTE | 2017-01-05 00:54 | CON ---
DATE OF CONSULT: 01/04/2017 LOCATION: The patient is in room 271, bed 1. REASON FOR CONSULTATION: Fatigue, weakness, dizziness, presyncope, and lightheadedness. HISTORY OF PRESENT ILLNESS: The patient is a 51-year-old female, who is known to have chronic fatigue syndrome, anemia, admitted with a history that she feeling very weak, dizzy, and feel like that she is going to fall down. Denies chest pain, shortness of breath associated with this episodes. She states that she was exposed to bedbugs few months ago. The patient denies any history of chest pain, shortness of breath, or palpitation. PAST HISTORY: Positive. She is known to have chronic fatigue syndrome, anemia. Last year, the patient had nephrostomy tube put in for atrophic kidney, hydronephrosis on left side along with pyelonephritis. Later on, nephrostomy tube was removed. The patient states that she was exposed to Lyme disease in 2014 and cardiac workup at that time was negative. The patient also states that she had 3 syncopal episodes, one in 1998, second one in 2010, third one in 2013, and syncope workup at that time was negative. The patient also has a history of depression, Leopoldo's thyroiditis, ankle surgery, and depression. FAMILY HISTORY: Father of carcinoma of the lung, mother of carcinoma of the ovary. PERSONAL HISTORY: Denies smoking, denies drinking. ALLERGIES: DENIES ANY ALLERGIES. The patient has a history of opioid dependence after being prescribed treatment for pain for ankle surgery. MEDICATIONS: The patient's home medications included Vyvanse 30 mg p.o. daily, Levothyroxine 25 mcg p.o. daily, Suboxone 2 mg-0.5 mg, , Xanax 0.5 mg p.o. at bedtime, Effexor XR 150 mg p.o. daily, and tramadol 50 mg p.r.n. REVIEW OF SYSTEMS: All the systems are reviewed. Positive mentioned in the history other than negative. PHYSICAL EXAMINATION: VITAL SIGNS: Blood pressure 132/71, respirations 20, pulse 96, temperature 97.6. HEENT: Head is normocephalic. Eyes, pupils normal. Conjunctivae normal. Nose and throat normal. NECK: JVP low. Carotids are equal. Thorax, AP diameter normal. LUNGS: Clear. CARDIOVASCULAR: S1 and S2. ABDOMEN: Soft. No tenderness. No organomegaly. EXTREMITIES: No edema, no clubbing, no cyanosis. SKIN: Showed multiple lesions on the leg and the face. EKG showed regular sinus rhythm. Chest x-ray showed no active pulmonary disease. CAT scan, no acute intracranial hemorrhage or no other significant abnormality. DIAGNOSES: Dizziness, near syncope; multiple skin lesions on face and legs, chronic fatigue syndrome, anemia, Leopoldo's thyroiditis, history of depression, had syncope in the past, history of Lyme disease, history of elevated CA 125, history opioid dependence. PLAN: We will check the blood pressure orthostatic to rule orthostatic hypotension. We will also order echocardiogram. We will continue to monitor the patient for any arrhythmia. The patient is on Synthroid 25 mcg p.o. daily. We will monitor with you and follow up with you. The patient also being seen by infectious disease. Jessika Moore MD
--- NOTE | 2017-01-05 01:37 | CARD ---
APPROVED REPORT EKG Measurement Heart [id number] <Conclusion> Normal sinus rhythm with sinus arrhythmia Normal ECG
[2017-01-05] MEDS: Levothyroxine 25 MCG TAB PO SCH (05:31)
[2017-01-05 08:00] LABS: BASO # 0.02 K/mm3 (0.0-2.0); BASO % 0.4 % (0.0-3.0); EOS # 0.2 (0.0-0.7); EOS % 2.6 % (1.5-5.0); GRAN # 2.37 (1.4-6.5); GRAN % 41.7 % (50.0-68.0); HEMATOCRIT 32.4 % (36.0-48.0); LYMPH # 2.6 (1.2-3.4); LYMPH % 45.6 % (22.0-35.0); MEAN CELL VOLUME 87.8 fl (80.0-105.0); MEAN CORPUSCULAR HEMOGLOBIN 30.1 pg (25.0-35.0); MEAN CORPUSCULAR HGB CONC 34.3 g/dl (31.0-37.0); MEAN PLATELET VOLUME 9.3 fl (7.0-11.0); MONO # 0.6 (0.1-0.6); MONO % 9.7 % (1.0-6.0); RED CELL DISTRIBUTION WIDTH 12.8 % (11.5-14.5); WHITE BLOOD COUNT 5.7 10^3/ul (4.5-11.0)
[2017-01-05 08:21] LABS: ALB/GLOB RATIO 1.3 (1.1-1.8); ALKALINE PHOSPHATASE 52 U/L (38-126); ALT/SGPT 32 U/L (7-56); AST/SGOT 23 U/L (14-36); BILIRUBIN,TOTAL 0.5 mg/dL (0.2-1.3); BLOOD UREA NITROGEN 8 mg/dL (7-21); CALCIUM 9.2 mg/dL (8.4-10.5); CARBON DIOXIDE 30 mmol/L (21-33); CHLORIDE 102 mmol/L (95-110); GFR AFRICAN-AMERICAN > 60; GLUCOSE,RANDOM 90 mg/dL (70-110); POTASSIUM 3.7 mmol/L (3.6-5.0); SODIUM 139 mmol/L (132-148); TOTAL PROTEIN 6.1 g/dL (5.8-8.3)
--- NOTE | 2017-01-05 09:17 | PN ---
DATE: 01/05/2017 SUBJECTIVE: The patient is in bed, in no acute distress, nontoxic. PHYSICAL EXAMINATION: VITAL SIGNS: Temperature is 97, blood pressures is 90/60, respiratory rate 18 and heart rate of 92. HEENT: Unremarkable. NECK: Supple. LUNGS: Decreased breath sounds. HEART: Normal S1 and S2. ABDOMEN: Soft and nontender. LABORATORY DATA: Reveals the white count of 5.7, hemoglobin of 11, platelets of 205. BUN of 8, creatinine of 0.9. Hepatitis C is pending. Microbiology is pending. LFTs are normal. Review of orders reveals the patient to be off of antibiotics. ASSESSMENT AND PLAN: This is a 51-year-old female with apparent Lyme infection, Leopoldo's thyroiditis, history of sepsis due to E. coli, pyelonephritis, status post nephrostomy tube, history of depression, history of babesiosis, was seen by Dr. Zacarias Trevino years ago, multiple travels to [place]. The patient will also travel to [facility] and [facility] and [facility], other areas of [facility] with multiple skin lesions on the face and currently with a cream, stool ova and parasites; history of depression and history of babesiosis, followed by Dr. Zacarias Trevino in the past. We will follow closely with you. Rico Arredondo MD
[2017-01-05] MEDS: Clotrimazole 1% Cream(30 gm) TOP SCH ×2 (11:13→17:24)
[2017-01-05 15:07] LABS: URINE BILIRUBIN NEGATIVE (NEGATIVE); URINE BLOOD TRACE-INTACT (NEGATIVE); URINE GLUCOSE (UA) NEGATIVE (NEGATIVE); URINE KETONE NEGATIVE (NEGATIVE); URINE LEUKOCYTE ESTERASE LARGE Leu/uL (NEGATIVE); URINE PROTEIN NEGATIVE mg/dL (<30 mg/dL); URINE UROBILINOGEN 0.2 E.U./dL (<1 E.U./dL)
[2017-01-05 15:23] LABS: URINE APPEARANCE CLOUDY (CLEAR); URINE COLOR YELLOW (YELLOW)
[2017-01-05 16:01] LABS: URINE BACTERIA FEW (NEG); URINE WBC 20 - 25 /hpf (0-6)
--- NOTE | 2017-01-05 21:38 | PN ---
DATE: 01/05/2017 LOCATION: The patient is in room 271, bed 1. REASON FOR CONSULTATION: Follow up fatigue, weakness, dizziness, presyncope, and lightheadedness. SUBJECTIVE: The patient is feeling better today. Denies chest pain, shortness of breath, palpitation dizzy. PHYSICAL EXAMINATION: VITAL SIGNS: Blood pressure 111/69, respirations 18, pulse 77, and temperature 98.2. We did orthostatic blood pressures, lying down 103/59, sitting 101/68, standing 106/72, so there is no portal hypotension. NECK: JVP low. Carotids are equal. THORAX: AP diameter normal. LUNGS: Clear. CARDIOVASCULAR: S1 and S2. ABDOMEN: Soft, nontender and no organomegaly. Bowel sounds normal. EXTREMITIES: No clubbing, no cyanosis. SKIN: Showed multiple lesions on the leg and the face. LABORATORY DATA: WBC 5.7, hemoglobin 11.1, hematocrit 32.4, platelet 205. Sodium 139, potassium 3.7, BUN 8, creatinine 0.9. AST and ALT normal. Total protein and albumin normal. TSH is normal. Echocardiogram was done yesterday. It showed normal size LV, normal LV function with ejection fraction of 55% to 60%, trace aortic regurg, mild mitral regurg, and trace tricuspid regurg. DIAGNOSES: Dizziness, near syncope, multiple skin lesions on face and legs, chronic fatigue syndrome, anemia, Leopoldo thyroiditis in the past causing hypothyroidism, history of depression, history of exposure to Lyme disease in the past, history of elevated CA-125, history of opioid dependence, history of syncopal episode in the past. PLAN: So far, the patient does not have any signs of postural hypotension and monitor did not show any arrhythmia. Echo is also without any significant abnormality. At this time, we will continue the same medication which is Synthroid 25 mcg p.o. daily, Zanaflex 4 mg p.o. bedtime, Motrin 600 mg p.o. t.i.d., Klonopin 0.5 b.i.d. Jessika Moore MD
[2017-01-06 04:09] VITALS: RESP 20
[2017-01-06] MEDS: Levothyroxine 25 MCG TAB PO SCH (05:36)
[2017-01-06] MEDS: Clotrimazole 1% Cream(30 gm) TOP SCH ×2 (10:55→18:37)
--- NOTE | 2017-01-06 13:41 | PN ---
DATE: 01/06/2017 LOCATION: The patient is in room 271, bed 1. REASON FOR CONSULTATION AND FOLLOWUP: Dizziness, presyncope, lightheadedness, and fatigue. SUBJECTIVE: The patient states that still off and on she is feeling dizzy. Denies chest pain, shortness of breath or palpitation. PHYSICAL EXAMINATION: VITAL SIGNS: Blood pressure of 104/63, respirations of 23, pulse of 87, and temperature of 99.5. HEENT: Head is normocephalic. Eyes; pupils normal. Conjunctivae are normal. Nose and throat are normal. NECK: JVP low. Carotid equal. Thorax, AP diameter normal. LUNGS: Clear. HEART: S1 and S2. ABDOMEN: Soft and nontender. No organomegaly. Bowel sounds are normal. EXTREMITIES: No clubbing. No cyanosis. LABORATORY DATA: Labs were done yesterday and they were reported progress note yesterday. DIAGNOSTIC DATA: Echo done on this admission, showed normal LV function, ejection fraction of 55% to 60%, mild mitral regurgitation, trace aortic regurgitation, and trace tricuspid regurgitation. DIAGNOSES: Dizziness, near syncope, multiple skin lesions on face and legs, chronic fatigue syndrome, anemia, Leopoldo thyroiditis with hypothyroidism, history of depression, history of exposure to Lyme disease in the past, history of elevated cancer antigen 125, history of opioid dependence, and history of syncopal episode in the past. PLAN: No arrhythmia seen on the telemetry and yesterday's blood pressure did not show any postural hypotension. So, we will continue present medication Klonopin 0.5 b.i.d., Motrin 600 mg t.i.d., levothyroxine 25 mcg p.o. daily, and Xanax 0.25 mg p.o. q.8 hours. We will discontinue telemetry. We will do stress test as an outpatient later on when the patient's dizziness has improved. Jessika Moore MD
--- NOTE | 2017-01-06 18:17 | CP.PCM.PN ---
Subjective - Date & Time of Evaluation Date of Evaluation: 01/05/17 Time of Evaluation: 21:00 - Subjective Subjective: Continues to feel like being in a "mental fog". Energy levels still low. Denies any dizziness. Denies pruritis; recent bugs 12 ROS otherwise negative Objective - Vital Signs/Intake and Output Vital Signs (last 24 hours): Temp Pulse Resp BP Pulse Ox 98.9 F 89 20 114/73 97 01/06/17 12:00 01/06/17 12:00 01/06/17 12:00 01/06/17 12:00 01/06/17 00:01 Intake and Output: 01/06/17 01/06/17 06:59 18:59 Intake Total 300 Balance 300 - Medications Medications: Current Medications Acetaminophen (Tylenol 325mg Tab) 650 mg PO Q4 PRN PRN Reason: Pain, Mild (1-3) Last Admin: 01/05/17 15:01 Dose: 650 mg Alprazolam (Xanax) 0.25 mg PO Q8H PRN; Protocol PRN Reason: Anxiety Stop: 01/11/17 08:31 Last Admin: 01/04/17 10:59 Dose: 0.25 mg Clonazepam (Klonopin) 0.5 mg PO BID [facility] PRN Reason: Protocol Last Admin: 01/06/17 10:52 Dose: 0.5 mg Clotrimazole (Lotrimin 1%) 0 gm TOP BID [facility] Last Admin: 01/06/17 10:55 Dose: 1 applic Home Med (Home Med) 0.5 unit SL DAILY PRN PRN Reason: Pain, severe (8-10) Levothyroxine Sodium (Synthroid) 25 mcg PO 0600 [facility] Last Admin: 01/06/17 05:36 Dose: 25 mcg Mupirocin (Bactroban Ointment) 0 gm TOP BID [facility] Last Admin: 01/06/17 10:55 Dose: 1 applic Polyethylene Glycol (Miralax) 17 gm PO DAILY PRN PRN Reason: Constipation Last Admin: 01/05/17 22:44 Dose: 17 gm Tizanidine HCl (Zanaflex) 4 mg PO HS [facility] Last Admin: 01/05/17 21:41 Dose: 4 mg Venlafaxine HCl (Effexor Xr) 150 mg PO DAILY [facility] - Labs Labs: 01/05/17 07:51 01/05/17 07:51 PT 11.2 Seconds (9.9-11.8) 01/03/17 21:15 INR 1.04 (0.93-1.08) 01/03/17 21:15 APTT 27.1 Seconds (23.7-30.8) 01/03/17 21:15 - Constitutional Appears: Non-toxic, Other (anxious) - Head Exam Head Exam: ATRAUMATIC, NORMAL INSPECTION, NORMOCEPHALIC - Neck Exam Neck Exam: Full ROM, Normal Inspection. absent: Lymphadenopathy - Respiratory Exam Respiratory Exam: Clear to Ausculation Bilateral, NORMAL BREATHING PATTERN - Cardiovascular Exam Cardiovascular Exam: REGULAR RHYTHM, +S1, +S2. absent: Murmur - Extremities Exam Extremities Exam: Full ROM, Normal Capillary Refill, Normal Inspection. absent : Joint Swelling, Pedal Edema - Skin Skin Exam: Dry, Intact, Normal Color, Warm Assessment and Plan - Assessment and Plan (Free Text) Assessment: Ms. Miranda frandy 51 y/o woman with an extensive pmxh signifiant for purported chronic lymi, nick's thyroidis, history of ecoli realted sepsis, depression with recent travels to [place] who presents with presyncopal symptoms in the setting of lesions on face/arms of unclear eiotlogy and a remote hx of exposure to bed bugs per the patient. At present with continue to follow-outstanding infectious disease w/up and appreciate ID recommendations. Patient's telemetry has been wnl thus far .
--- NOTE | 2017-01-06 18:33 | CP.PCM.PN ---
Subjective - Date & Time of Evaluation Date of Evaluation: 01/06/17 Time of Evaluation: 16:00 - Subjective Subjective: Continues to feel drained and not at baseline though overall better. Concerned that people entering her room; may start itching. Concerned about not being able to get her own albiet suboxone from pharamcy and not being on effexor 12 ROs otherwise negative Pain: slight neck and inguinal pain b/l Objective - Vital Signs/Intake and Output Vital Signs (last 24 hours): Temp Pulse Resp BP Pulse Ox 98.9 F 89 20 114/73 97 01/06/17 12:00 01/06/17 12:00 01/06/17 12:00 01/06/17 12:00 01/06/17 00:01 Intake and Output: 01/06/17 01/06/17 06:59 18:59 Intake Total 300 Balance 300 - Medications Medications: Current Medications Acetaminophen (Tylenol 325mg Tab) 650 mg PO Q4 PRN PRN Reason: Pain, Mild (1-3) Last Admin: 01/05/17 15:01 Dose: 650 mg Alprazolam (Xanax) 0.25 mg PO Q8H PRN; Protocol PRN Reason: Anxiety Stop: 01/11/17 08:31 Last Admin: 01/04/17 10:59 Dose: 0.25 mg Clonazepam (Klonopin) 0.5 mg PO BID [facility] PRN Reason: Protocol Last Admin: 01/06/17 10:52 Dose: 0.5 mg Clotrimazole (Lotrimin 1%) 0 gm TOP BID [facility] Last Admin: 01/06/17 10:55 Dose: 1 applic Home Med (Home Med) 0.5 unit SL DAILY PRN PRN Reason: Pain, severe (8-10) Levothyroxine Sodium (Synthroid) 25 mcg PO 0600 [facility] Last Admin: 01/06/17 05:36 Dose: 25 mcg Mupirocin (Bactroban Ointment) 0 gm TOP BID [facility] Last Admin: 01/06/17 10:55 Dose: 1 applic Polyethylene Glycol (Miralax) 17 gm PO DAILY PRN PRN Reason: Constipation Last Admin: 01/05/17 22:44 Dose: 17 gm Tizanidine HCl (Zanaflex) 4 mg PO HS [facility] Last Admin: 01/05/17 21:41 Dose: 4 mg Venlafaxine HCl (Effexor Xr) 150 mg PO DAILY [facility] - Labs Labs: 01/05/17 07:51 01/05/17 07:51 PT 11.2 Seconds (9.9-11.8) 01/03/17 21:15 INR 1.04 (0.93-1.08) 01/03/17 21:15 APTT 27.1 Seconds (23.7-30.8) 01/03/17 21:15 - Constitutional Appears: Well - Neck Exam Neck Exam: Full ROM, Normal Inspection. absent: Lymphadenopathy - Respiratory Exam Respiratory Exam: Clear to Ausculation Bilateral, NORMAL BREATHING PATTERN - Cardiovascular Exam Cardiovascular Exam: REGULAR RHYTHM, +S1, +S2. absent: Murmur - Extremities Exam Extremities Exam: Full ROM, Normal Capillary Refill, Normal Inspection. absent : Joint Swelling, Pedal Edema Assessment and Plan - Assessment and Plan (Free Text) Assessment: Ms. Miranda is a 51 y/o woman with an extensive pmxh signifiant for purported chronic lymi, nick's thyroiditis, history of ecoli related sepsis , depression with recent travels to [place] who presents with presyncopal symptoms in the setting of lesions on face/arms of unclear eiotlogy and a remote hx of exposure to bed bugs per the patient. At present with continue to follow-outstanding infectious disease w/up and appreciate ID recommendations. Patient's telemetry has been wnl thus far . Plan on re-starting the patient back on 150mg Effexor XR. patient unable to get suboxone from pharmacy b/c her previous subaxone was . Unclear if patient will be able to get subaxone during hospitaliztion will f/u with pharmacy. #presynope -tele wnl -continue to observe; appreciate cardiac reces #bit feliz; and remote hx of bed bug exposure? -f/u infectious disease w/up with ID -no active indication for bed bugs; can consider d/c of contact precautions pending ID evaluation #dispo -unclear; likely home but unclear if patient has local residence? will need to f /u with neonatal social worker Drew Liu MD Oncology/Hematology
--- NOTE | 2017-01-06 19:10 | PN ---
DATE: 01/06/2017 SUBJECTIVE: The patient seen earlier today in 271 and overall she is complaining of weakness and fatigue. PHYSICAL EXAMINATION VITAL SIGNS: Temperature is 98, blood pressure is 114/70, respiratory rate is 20, heart rate is 76. HEENT: Unremarkable. NECK: Supple. LUNGS: Decreased breath sounds. HEART: Normal S1 and S2. ABDOMEN: Soft, nontender. LABORATORY DATA: Reveals a white count of 5.7, hemoglobin 11, platelets of 205. Chemistries are noted. Serology is noted. Urinalysis is noted. Microbiology with Strep series in the urine. Review of orders reveals the patient to be off of antibiotics. ASSESSMENT AND PLAN: This is a 51-year-old female with apparent Lyme infection by history, Leopoldo's thyroiditis, history of sepsis due to E. coli, pyelonephritis, history of nephrostomy tube, history of depression, history of Babesiosis many years ago diagnosed by [facility]. Multiple travels to [place]. The patient also traveled to [facility]. The patient also had traveled also to [facility] and other areas of [facility]. Now has multiple skin lesions positive urinalysis and positive Strep in the urine. We will check for further identification. We will follow with you. The patient has symptoms of urinary tract infection, we will treat. Rico Arredondo MD
[2017-01-07 05:23] VITALS: O2SAT 96
[2017-01-07] MEDS: Levothyroxine 25 MCG TAB PO SCH (06:46)
[2017-01-07 07:42] VITALS: BP 114/73; PULSE 87; TEMP 98.7
[2017-01-07] MEDS: Clotrimazole 1% Cream(30 gm) TOP SCH ×2 (09:30→18:16)
[2017-01-07] MEDS ORDERED: Venlafaxine 75 mg ER Cap PO SCH (10:00)
[2017-01-07] MEDS ORDERED: POLYETHYLENE GLYCOL 3350 17 GM/Dose PACKET PO SCH ×2 (12:50→15:32)
[2017-01-07] MEDS ORDERED: ceFAZolin 1 gm in NS 1 GM/100 ML BAG IVPB SCH (14:00)
--- NOTE | 2017-01-07 14:53 | PN ---
DATE: 01/07/2017 LOCATION: The patient is in room 560, bed 1. REASON FOR CONSULTATION: Followup dizziness, presyncope, lightheadedness, and fatigue. SUBJECTIVE: The patient lying comfortably in bed without chest pain, shortness of breath, palpitation, but still complains of fatigue. PHYSICAL EXAMINATION VITAL SIGNS: Blood pressure 114/73, respirations 20, pulse 87, temperature 98.7. Yesterday, blood pressure was done in three positions, lying, sitting, standing and there was no evidence of postural hypotension. HEENT: Head is normocephalic. Eyes; pupils normal. Conjunctiva are normal. Nose and throat normal. NECK: JVP low. Carotid equal. Thorax, AP diameter normal. LUNGS: Clear. CARDIOVASCULAR: S1 and S2. ABDOMEN: Soft, nontender. No organomegaly. Bowel sounds normal. EXTREMITIES: No clubbing, no cyanosis. LABORATORY DATA: WBC 5.7, hemoglobin 11.1, hematocrit 32.4, platelet 205. Sodium 139, potassium 3.7, BUN 8, creatinine 0.9. Glucose, calcium, phosphorus, AST, ALT, total protein and albumin normal. Echo showed normal. Ejection fraction with 55% to 60%, mild mitral regurg, trace aortic regurg, and trace tricuspid regurg. DIAGNOSES: Dizziness, near syncope, multiple skin lesions on face and legs, chronic fatigue syndrome, anemia, Leopoldo thyroiditis, history of anemia, hypothyroidism, history of depression. In the past, the patient has exposure to Lyme disease, history of elevated cancer antigen 125, history of opioid dependence, and history of syncopal episode in the past. PLAN: The patient clinically from cardiac point of view was stable. When she feels better with dizziness, we will do stress test as an outpatient. In the meantime, we will continue the medication prescribed including Ancef 1 g IV daily, Effexor XR 150 p.o. daily, Synthroid 25 mcg p.o. daily. We will follow with you. Jessika Moore MD
[2017-01-07] MEDS ORDERED: POLYETHYLENE GLYCOL 3350 17 GM/Dose PACKET PO STA (15:55)
[2017-01-07] MEDS ORDERED: Lactobacillus Acidophilus 500 MU Cap PO SCH (18:00)
--- NOTE | 2017-01-07 21:28 | CP.PCM.PN ---
Subjective - Date & Time of Evaluation Date of Evaluation: 01/07/17 Time of Evaluation: 11:27 - Subjective Subjective: Heme/Onc progress note for Dr. Liu's service Patient seen and examined at bedside this morning. No acute overnight events or new complaints reported. Objective - Vital Signs/Intake and Output Vital Signs (last 24 hours): Temp Pulse Resp BP Pulse Ox 98.7 F 87 20 114/73 96 01/07/17 07:30 01/07/17 07:30 01/07/17 07:30 01/07/17 07:30 01/07/17 07:30 Intake and Output: 01/07/17 01/08/17 18:59 06:59 Intake Total 540 Output Total 0 Balance 540 - Labs Labs: 01/05/17 07:51 01/05/17 07:51 PT 11.2 Seconds (9.9-11.8) 01/03/17 21:15 INR 1.04 (0.93-1.08) 01/03/17 21:15 APTT 27.1 Seconds (23.7-30.8) 01/03/17 21:15 Assessment and Plan - Assessment and Plan (Free Text) Plan: 51yo female with history of chronic lymi, nick's thyroiditis, ecoli- related sepsis, depression and recent travel to [place] presents with symptoms of presyncope 1. Pre-syncope -Orthostatic vital signs within normal limits -Telemetry with no apparent abnormalities, discontinued per cardiology recommendations -Cardiology consulted; clinically stable per cardiology; recommend outpatient stress test upon discharge -Neurology consulted - Dr. Rutledge; pre-syncope thought to be not neurologic in nature -CT Head revealed no acute abnormalities; see full report -EKG reviewed; normal sinus rhythm with no acute ST-T wave changes -CXR revealed no active disease -Echocardiogram reviewed; LVEF 55-60%; refer to full report 2. UTI -Urine culture revealed beta hemolytic group B strep -Patient started on ancef per ID recommendations; may be transitioned to PO keflex 3. Disposition -TCU evaluation pending Patient seen and case discussed with attending, Dr. Liu
[2017-01-08] MEDS ORDERED: POLYETHYLENE GLYCOL 3350 17 GM/Dose PACKET PO SCH (10:00)
--- NOTE | 2017-01-08 11:36 | CP.PCM.DIS ---
Provider - Provider Date of Admission: 01/04/17 09:00 Attending physician: Alonso Mendez MD Primary care physician: Adria Liu MD Consults: Cardiology - Dr. Loya Neurology - Dr. Rutledge ID - Dr. Arredondo pain management - Dr. Cruz Time Spent in preparation of Discharge (in minutes): 35 Hospital Course - Lab Results Lab Results: Micro Results 01/05/17 14:45 Urine,Clean Catch Urine Culture - Final Beta Hemolytic Strep Group B Most Recent Lab Values WBC 5.7 10^3/ul (4.5-11.0) 01/05/17 07:51 RBC 3.69 10^6/uL (3.5-6.1) 01/05/17 07:51 Hgb 11.1 g/dL (12.0-16.0) L 01/05/17 07:51 Hct 32.4 % (36.0-48.0) L 01/05/17 07:51 MCV 87.8 fl (80.0-105.0) 01/05/17 07:51 MCH 30.1 pg (25.0-35.0) 01/05/17 07:51 MCHC 34.3 g/dl (31.0-37.0) 01/05/17 07:51 RDW 12.8 % (11.5-14.5) 01/05/17 07:51 Plt Count 205 10^3/uL (120.0-450.0) 01/05/17 07:51 MPV 9.3 fl (7.0-11.0) 01/05/17 07:51 Gran % 41.7 % (50.0-68.0) L 01/05/17 07:51 Lymph % (Auto) 45.6 % (22.0-35.0) H 01/05/17 07:51 Wood % (Auto) 9.7 % (1.0-6.0) H 01/05/17 07:51 Eos % (Auto) 2.6 % (1.5-5.0) 01/05/17 07:51 Baso % (Auto) 0.4 % (0.0-3.0) 01/05/17 07:51 Gran # 2.37 (1.4-6.5) 01/05/17 07:51 Lymph # 2.6 (1.2-3.4) 01/05/17 07:51 Wood # 0.6 (0.1-0.6) 01/05/17 07:51 Eos # 0.2 (0.0-0.7) 01/05/17 07:51 Baso # 0.02 K/mm3 (0.0-2.0) 01/05/17 07:51 PT 11.2 Seconds (9.9-11.8) 01/03/17 21:15 INR 1.04 (0.93-1.08) 01/03/17 21:15 APTT 27.1 Seconds (23.7-30.8) 01/03/17 21:15 Sodium 139 mmol/L (132-148) 01/05/17 07:51 Potassium 3.7 mmol/L (3.6-5.0) 01/05/17 07:51 Chloride 102 mmol/L (95-110) 01/05/17 07:51 Carbon Dioxide 30 mmol/L (21-33) 01/05/17 07:51 Anion Gap 11 (10-20) 01/05/17 07:51 BUN 8 mg/dL (7-21) 01/05/17 07:51 Creatinine 0.9 mg/dL (0.5-1.4) 01/05/17 07:51 Est GFR ( Amer) > 60 01/05/17 07:51 Est GFR (Non-Af Amer) > 60 01/05/17 07:51 POC Glucose (mg/dL) 97 mg/dL (65-110) 01/03/17 21:18 Random Glucose 90 mg/dL (70-110) 01/05/17 07:51 Calcium 9.2 mg/dL (8.4-10.5) 01/05/17 07:51 Total Bilirubin 0.5 mg/dL (0.2-1.3) 01/05/17 07:51 AST 23 U/L (14-36) 01/05/17 07:51 ALT 32 U/L (7-56) 01/05/17 07:51 Alkaline Phosphatase 52 U/L (38-126) 01/05/17 07:51 Lactate Dehydrogenase 538 U/L (333-699) 01/03/17 21:15 Total Creatine Kinase 120 U/L (35-230) 01/03/17 21:15 Troponin I < 0.01 ng/mL 01/03/17 21:15 Total Protein 6.1 g/dL (5.8-8.3) 01/05/17 07:51 Albumin 3.5 g/dL (3.0-4.8) 01/05/17 07:51 Globulin 2.6 gm/dL 01/05/17 07:51 Albumin/Globulin Ratio 1.3 (1.1-1.8) 01/05/17 07:51 Free T4 1.26 ng/dL (0.78-2.19) 01/03/17 21:15 TSH 3rd Generation 1.25 mIU/mL (0.46-4.68) 01/03/17 21:15 Urine Color Yellow (YELLOW) 01/05/17 14:45 Urine Appearance Cloudy (CLEAR) 01/05/17 14:45 Urine pH 7.0 (4.7-8.0) 01/05/17 14:45 Ur Specific [place] 1.010 (1.005-1.035) 01/05/17 14:45 Urine Protein Negative mg/dL (<30 mg/dL) 01/05/17 14:45 Urine Glucose (UA) Negative mg/dL (NEGATIVE) 01/05/17 14:45 Urine Ketones Negative mg/dL (NEGATIVE) 01/05/17 14:45 Urine Blood Trace-intact (NEGATIVE) H 01/05/17 14:45 Urine Nitrate Negative (NEGATIVE) 01/05/17 14:45 Urine Bilirubin Negative (NEGATIVE) 01/05/17 14:45 Urine Urobilinogen 0.2 E.U./dL (<1 E.U./dL) 01/05/17 14:45 Ur Leukocyte Esterase Large Luis Felipe/uL (NEGATIVE) H 01/05/17 14:45 Urine RBC 1 - 3 /hpf (0-2) 01/05/17 14:45 Urine WBC 20 - 25 /hpf (0-6) 01/05/17 14:45 Ur Epithelial Cells 3 - 4 /hpf (0-5) 01/05/17 14:45 Urine Bacteria Few (NEG) 01/05/17 14:45 Hepatitis C Antibody Negative (NEGATIVE) 01/05/17 07:51 HIV 1&2 Ag/Ab, 4th Gen Nonreactive (Nonreactive) 01/05/17 07:51 - Hospital Course Hospital Course: 51yo female with history of chronic lymi, nick's thyroiditis, ecoli- related sepsis, depression and recent travel to [place] presents with symptoms of presyncopal episode. During her admission the following workup was done during her hospital course: 1. Pre-syncope -Orthostatic vital signs within normal limits -Telemetry with no apparent abnormalities, discontinued per cardiology recommendations -Cardiology consulted; clinically stable per cardiology; recommended outpatient stress test upon discharge -Neurology consulted - Dr. Rutledge; pre-syncope thought to not be neurologic in nature -CT Head revealed no acute abnormalities -EKG reviewed; normal sinus rhythm with no acute ST-T wave changes -CXR revealed no active disease -Echocardiogram reviewed; LVEF 55-60%; please refer to full report 2. UTI -Urine culture revealed beta hemolytic group B strep -Patient started on ancef per ID recommendations; may be transitioned to PO keflex 3. Disposition - Patient was evaluated and accepted to the transitional care unit for physical rehabilitation Patient seen and case discussed with attending, Dr. Liu Discharge Exam - Head Exam Head Exam: ATRAUMATIC, NORMAL INSPECTION, NORMOCEPHALIC - Eye Exam Eye Exam: EOMI, PERRL - ENT Exam ENT Exam: Mucous Membranes Moist - Respiratory Exam Respiratory Exam: Clear to PA & Lateral. absent: Rales, Rhonchi, Wheezes - Cardiovascular Exam Cardiovascular Exam: RRR, +S1, +S2. absent: Gallop, Rubs - GI/Abdominal Exam GI & Abdominal Exam: Normal Bowel Sounds, Soft. absent: Distended, Firm, Guarding, Rigid, Tenderness - Neurological Exam Neurological exam: Alert, Oriented x3 - Psychiatric Exam Psychiatric exam: Normal Affect, Normal Mood - Skin Skin Exam: Dry, Intact, Normal Color, Warm Discharge Plan - Follow Up Plan Condition: FAIR Disposition: TRANSF TO SNF Instructions: Syncope (DC), Autoimmune Thyroid Disorders (DC), Keratoconus (GEN ) Additional Instructions: Transfer patient to TCU Referrals: Adria Liu MD [Primary Care Provider] -
--- NOTE | 2017-01-09 14:07 | PQF GENQUE ---
01/09/17 Dr. Liu, Any etiology for patient's syncope? Thank you. Clarification of your documentation is requested to better reflect the severity of illness and intensity of treatment of your patient. Indicators present [] Specify: [] [] Specify: [] [] Specify: [] [] Specify: [] Location in the medical record that reflects the above clinical findings: [] Treatment Provided: [] PHYSICIAN'S RESPONSE Based on your medical judgment of the clinical indicators outlined above please clarify the following: [] Practitioner response [] If unable to determine, please check the box, sign and date. Present On Admission (POA) Indicator: [] Present at the time of admission [] Not present at the time of admission [] Clinically Undetermined In responding to this query, please exercise your independent professional judgment. The fact that a question is asked does not imply that any particular answer is desired or expected. Thank you for your clarification on this documentation. If you have any questions please call:[ ] * Thank you, [ ] aeronautical test engineer CARLOS ENRIQUE
== END 2017-01-07 17:27 | DRG 312 ==
LOC: ED 19:47 → ERH 22:27 → OBSVTOIN 01-04 09:00 → ERH 01-04 10:23 → 2RSO 01-04 11:24 → 5RNO 01-06 17:24
PROVIDERS: ADMIT Family Medicine; ATTEND Family Medicine
DX: R55 Syncope and collapse (principal); A69.20 Lyme disease, unspecified; I08.3 Combined rheumatic disorders of mitral, aortic and tricuspid valves; N39.0 Urinary tract infection, site not specified; D50.9 Iron deficiency anemia, unspecified; F11.21 Opioid dependence, in remission; Z93.6 Other artificial openings of urinary tract status; B95.1 Streptococcus, group B, as the cause of diseases classified elsewhere; Z80.41 Family history of malignant neoplasm of ovary; E06.3 Autoimmune thyroiditis; L29.9 Pruritus, unspecified; N18.9 Chronic kidney disease, unspecified; Z80.1 Family history of malignant neoplasm of trachea, bronchus and lung; Z86.19 Personal history of other infectious and parasitic diseases; K59.00 Constipation, unspecified; D28.2 Benign neoplasm of uterine tubes and ligaments; R40.2412 Glasgow coma scale score 13-15, at arrival to emergency department; F32.89 Other specified depressive episodes; R97.1 Elevated cancer antigen 125 [CA 125]; R42 Dizziness and giddiness; S00.86XA Insect bite (nonvenomous) of other part of head, initial encounter; S40.862A Insect bite (nonvenomous) of left upper arm, initial encounter; S40.861A Insect bite (nonvenomous) of right upper arm, initial encounter

== ENCOUNTER 2017-01-07 19:27 | Inpatient (IN) | payer OTHER, BC ==
[2017-01-07] MEDS: ceFAZolin 1 gm in NS 1 GM/100 ML BAG IVPB SCH (22:28)
[2017-01-08 01:25] VITALS: BMI 22.4
[2017-01-08] MEDS: Levothyroxine 25 MCG TAB PO SCH (05:27)
[2017-01-08] MEDS: ceFAZolin 1 gm in NS 1 GM/100 ML BAG IVPB SCH ×3 (05:27→21:32)
[2017-01-08 05:55] LABS: BASO # 0.02 K/mm3 (0.0-2.0); BASO % 0.3 % (0.0-3.0); EOS # 0.1 (0.0-0.7); EOS % 1.6 % (1.5-5.0); GRAN # 3.85 (1.4-6.5); GRAN % 59.9 % (50.0-68.0); LYMPH # 1.9 (1.2-3.4); LYMPH % 29.2 % (22.0-35.0); MEAN CELL VOLUME 87.5 fl (80.0-105.0); MEAN CORPUSCULAR HGB CONC 34.3 g/dl (31.0-37.0); MEAN PLATELET VOLUME 9.2 fl (7.0-11.0); MONO # 0.6 (0.1-0.6); RED CELL DISTRIBUTION WIDTH 12.7 % (11.5-14.5); WHITE BLOOD COUNT 6.4 10^3/ul (4.5-11.0)
[2017-01-08 06:23] LABS: ALB/GLOB RATIO 1.3 (1.1-1.8); ALKALINE PHOSPHATASE 57 U/L (38-126); ALT/SGPT 30 U/L (7-56); AST/SGOT 23 U/L (14-36); BILIRUBIN,TOTAL 0.6 mg/dL (0.2-1.3); BLOOD UREA NITROGEN 11 mg/dL (7-21); CALCIUM 9.5 mg/dL (8.4-10.5); CARBON DIOXIDE 31 mmol/L (21-33); CHLORIDE 103 mmol/L (95-110); GFR AFRICAN-AMERICAN > 60; GLUCOSE,RANDOM 87 mg/dL (70-110); POTASSIUM 4.4 mmol/L (3.6-5.0); SODIUM 140 mmol/L (132-148); TOTAL PROTEIN 6.5 g/dL (5.8-8.3)
[2017-01-08] MEDS: Venlafaxine 75 mg ER Cap PO SCH (11:18)
[2017-01-08] MEDS: Clotrimazole 1% Cream(30 gm) TOP SCH ×3 (11:18→18:28)
[2017-01-08] MEDS: POLYETHYLENE GLYCOL 3350 17 GM/Dose PACKET PO SCH ×2 (11:20→18:27)
[2017-01-08] MEDS: Lactobacillus Acidophilus 500 MU Cap PO SCH ×2 (11:24→18:28)
--- NOTE | 2017-01-08 11:48 | CP.PCM.HP ---
History of Present Illness - History of Present Illness History of Present Illness: HPI: Patient is a 51yo female with past medical history of nick's thyroiditis, ecoli-related sepsis, depression, hydronephrosis relieved by percutaneous nephrostomy tube placement, opiod dependence that presented to [facility] c/o fatigue and pre-syncope. Patient underwent an extensive workup for her presyncopal episode including orthostatic vital signs, telemetry monitoring, CT Head, echocardiogram and evaluation by cardiology, neurology and infectious disease. Patient was subsequently cleared for discharge to the transitional care unit for physical therapy/rehabilitation. She admitted to fatigue and weakness but denied chest pain, palpitations, SOB, abdominal pain, nausea, vomiting, fever, chills, cough. 12point ROS as per HPI above, otherwise negative PMHx: nick's thyroiditis, ecoli-related sepsis, depression, hydronephrosis , history of lyme disease, bed bugs, elevated CA125 testing PSHx: percutaneous nephrostomy tube placement by Dr. Trevino Allergies: NKDA Family Hx: history of ovarian cancer in the family Social Hx: Denies alcohol, smoking and illicit drug use; opiod drug dependence post ankle surgery Present on Admission - Present on Admission Any Indicators Present on Admission: No Past Patient History - Infectious Disease Hx of Infectious Diseases: None - Past Social History Smoking Status: Never Smoked - CARDIAC Hx Pacemaker: No - PULMONARY Hx Respiratory Disorders: No - NEUROLOGICAL Hx Paralysis: No Other/Comment: h/o lyme disease - HEENT Hx HEENT Problems: No - RENAL Hx Chronic Kidney Disease: Yes Hx Pyelonephritis: Yes (11-29-15) Other/Comment: h/o nephrostomy - ENDOCRINE/METABOLIC Hx Endocrine Disorders: Yes Hx Hyperthyroidism: Yes Other/Comment: nick's dx - HEMATOLOGICAL/ONCOLOGICAL Hx Blood Transfusions: No (REFUSED AT ONE TIME) - INTEGUMENTARY Hx Dermatological Problems: No - MUSCULOSKELETAL/RHEUMATOLOGICAL Hx Musculoskeletal Disorders: Yes (LYME) - GASTROINTESTINAL Hx Gastrointestinal Disorders: No (CONSTIPATION) - GENITOURINARY/GYNECOLOGICAL Hx Genitourinary Disorders: (FIBROIDS) Other/Comment: L hydronephrosis - PSYCHIATRIC Hx Emotional Abuse: No Hx Physical Abuse: No Hx Substance Use: No - SURGICAL HISTORY Other/Comment: nephrostomy - ANESTHESIA Hx Anesthesia: Yes Hx Anesthesia Reactions: Yes (AGITATION) Meds Allergies/Adverse Reactions: Allergies Allergy/AdvReac Type Severity Reaction Status Date / Time No Known Allergies Allergy Verified 01/08/17 08:28 Physical Exam - Constitutional Appears: Non-toxic, No Acute Distress - Head Exam Head Exam: ATRAUMATIC, NORMAL INSPECTION, NORMOCEPHALIC - Eye Exam Eye Exam: EOMI, PERRL - ENT Exam ENT Exam: Mucous Membranes Moist - Neck Exam Neck exam: Positive for: Normal Inspection - Respiratory Exam Respiratory Exam: Clear to Auscultation Bilateral. absent: Rales, Rhonchi, Wheezes - Cardiovascular Exam Cardiovascular Exam: RRR, +S1, +S2. absent: JVD - GI/Abdominal Exam GI & Abdominal Exam: Normal Bowel Sounds, Soft. absent: Distended, Guarding, Rebound, Rigid, Tenderness - Extremities Exam Extremities exam: Negative for: pedal edema, tenderness - Neurological Exam Neurological exam: Alert, CN II-XII Intact, Oriented x3 - Psychiatric Exam Psychiatric exam: Normal Affect, Normal Mood - Skin Skin Exam: Dry, Intact, Normal Color, Warm Results - Vital Signs Recent Vital Signs: Last Vital Signs Temp 98.7 F 01/07/17 07:30 Pulse 87 01/07/17 07:30 Resp 20 01/07/17 07:30 BP 114/73 01/07/17 07:30 Pulse Ox 96 01/07/17 07:30 - Labs Result Diagrams: 01/08/17 05:20 01/08/17 05:20 Labs: Laboratory Results - last 24 hr 01/05/17 07:51 HIV 1&2 Ag/Ab, 4th Gen Nonreactive Assessment & Plan - Assessment and Plan (Free Text) Plan: 51yo female with history of chronic lymi, nick's thyroiditis, ecoli- related sepsis, depression and recent travel to [place] presents with symptoms of presyncope 1. Pre-syncope -Orthostatic vital signs within normal limits -Telemetry with no apparent abnormalities, discontinued per cardiology recommendations -Cardiology consulted; clinically stable per cardiology; recommend outpatient stress test upon discharge -Neurology consulted - Dr. Rutledge; pre-syncope thought to be not neurologic in nature -CT Head revealed no acute abnormalities; see full report -EKG reviewed; normal sinus rhythm with no acute ST-T wave changes -CXR revealed no active disease -Echocardiogram reviewed; LVEF 55-60%; refer to full report 2. UTI -Urine culture revealed beta hemolytic group B strep -Patient started on ancef per ID recommendations; may be transitioned to PO keflex 3. Disposition -Patient currently undergoing physical rehabilitation in the TCU for deconditioning. Patient seen and case discussed with attending, Dr. Liu - Date & Time Date: 01/08/17 Time: 11:52
--- NOTE | 2017-01-08 12:25 | CP.PCM.CON ---
History of Present Illness - History of Present Illness History of Present Illness: 51 year old female with PMH of apparent Lyme disease infection, Leopoldo thyroid disease, history of sepsis due to E. coli pyelonephritis S/P nephrostomy tube placement (2016), history of depression was initially admitted due to generalized fatigue and weakness. She is currently being treated for possible fungal skin lesions and Group B Strep UTI. She is now transferred to [facility] for continued medical therapy and physical rehab. Infectious Diseases consult is requested to further evaluate and manage. Currently she is doing some rehab and so far doing ok, denies fever or chills, still has occasional fatigue, no abdominal pain, no diarrhea, no dysuria, no chest pain, no SOB, no cough or rhinorrhea, no headache currently. Review of Systems - Review of Systems All systems: reviewed and no additional remarkable complaints except (as per HPI ) Past Patient History - Infectious Disease Hx of Infectious Diseases: None - Past Social History Smoking Status: Never Smoked - CARDIAC Hx Pacemaker: No - PULMONARY Hx Respiratory Disorders: No - NEUROLOGICAL Hx Paralysis: No Other/Comment: h/o lyme disease - HEENT Hx HEENT Problems: No - RENAL Hx Pyelonephritis: Yes Other/Comment: h/o Nephrectomy - ENDOCRINE/METABOLIC Hx Endocrine Disorders: Yes Hx Hypothyroidism: Yes Other/Comment: Leopoldo Thyroiditis - HEMATOLOGICAL/ONCOLOGICAL Hx Blood Transfusions: No (REFUSED AT ONE TIME) - INTEGUMENTARY Hx Dermatological Problems: Yes (Lyme disease, skin lesions) - MUSCULOSKELETAL/RHEUMATOLOGICAL Hx Falls: No - GASTROINTESTINAL Hx Gastrointestinal Disorders: No - GENITOURINARY/GYNECOLOGICAL Hx Hematuria: Yes Hx Urinary Tract Infection: Yes - PSYCHIATRIC Hx Depression: Yes Other/Comment: h/o substance/drug abuse - SURGICAL HISTORY Hx Surgeries: Yes (h/o nephrectomy) - ANESTHESIA Hx Anesthesia: Yes Hx Anesthesia Reactions: Yes (AGITATION) Meds Allergies/Adverse Reactions: Allergies Allergy/AdvReac Type Severity Reaction Status Date / Time No Known Allergies Allergy Verified 01/08/17 08:28 - Medications Medications: Current Medications Acetaminophen (Tylenol 325mg Tab) 650 mg PO Q4 PRN; Protocol PRN Reason: Pain, Mild (1-3) Alprazolam (Xanax) 0.25 mg PO Q8 PRN; Protocol PRN Reason: Anxiety Stop: 01/14/17 22:01 Clotrimazole (Lotrimin 1%) 1 gm TOP BID ASHLEE PRN Reason: Protocol Cefazolin Sodium (Ancef 1gm In Ns) 1 gm in 100 mls @ 100 mls/hr IVPB Q8 ASHLEE PRN Reason: Protocol Last Admin: 01/08/17 05:27 Dose: 100 mls/hr Lactobacillus Acidophilus (Bacid Acidophilus) 1 cap PO BID ASHLEE PRN Reason: Protocol Levothyroxine Sodium (Synthroid) 25 mcg PO 0600 ASHLEE PRN Reason: Protocol Last Admin: 01/08/17 05:27 Dose: 25 mcg Mupirocin (Bactroban Ointment) 1 gm TOP BID ASHLEE PRN Reason: Protocol Polyethylene Glycol (Miralax) 17 gm PO BID ASHLEE PRN Reason: Protocol Tizanidine HCl (Zanaflex) 4 mg PO HS ASHLEE PRN Reason: Protocol Last Admin: 01/07/17 22:28 Dose: 4 mg Venlafaxine HCl (Effexor Xr) 150 mg PO DAILY ASHLEE PRN Reason: Protocol Physical Exam - Constitutional Appears: Non-toxic, No Acute Distress - Head Exam Head Exam: NORMAL INSPECTION - ENT Exam ENT Exam: Mucous Membranes Moist - Neck Exam Neck exam: Negative for: Meningismus - Respiratory Exam Respiratory Exam: Decreased Breath Sounds - Cardiovascular Exam Cardiovascular Exam: +S1, +S2 - GI/Abdominal Exam GI & Abdominal Exam: Soft. absent: Tenderness Results - Vital Signs Recent Vital Signs: Last Vital Signs Temp 98.1 F 01/08/17 06:00 Pulse 74 01/08/17 06:00 Resp 18 01/08/17 06:00 BP 105/61 01/08/17 06:00 Pulse Ox 96 01/08/17 06:00 - Labs Result Diagrams: 01/08/17 05:20 01/08/17 05:20 Labs: Laboratory Results - last 24 hr 01/08/17 05:20 WBC 6.4 RBC 4.00 Hgb 12.0 Hct 35.0 L MCV 87.5 MCH 30.0 MCHC 34.3 RDW 12.7 Plt Count 214 MPV 9.2 Gran % 59.9 Lymph % (Auto) 29.2 Slope % (Auto) 9.0 H Eos % (Auto) 1.6 Baso % (Auto) 0.3 Gran # 3.85 Lymph # 1.9 Slope # 0.6 Eos # 0.1 Baso # 0.02 Assessment & Plan - Assessment and Plan (Free Text) Plan: Assessment Group B Strep lower UTI Multiple skin lesions on the face, legs R/O fungal disease; patient with history of apparent bed bug bites apparent Lyme disease infection history of sepsis due to E. coli pyelonephritis S/P nephrostomy tube placement ( 2015) history of depression Leopoldo thyroid disease Plan continue Clotrimazole cream and Bactroban ointment over the skin lesions continue Cefazolin and can be switched to PO Keflex to complete 5-7 days of therapy Follow up stool for ova and parasites will monitor clinical response discussed with Dr. Liu
--- NOTE | 2017-01-08 21:28 | CON ---
DATE: 01/08/2017 REASON FOR CONSULTATION: Continuity of care in transitional care unit, cardiology followup because feeling palpitations, syncope, near syncope, lightheadedness. BRIEF CLINICAL HISTORY: This 51-year-old female known to have chronic fatigue syndrome, anemia, admitted with history, feeling very weak, dizzy, feeling pass out, admitted here to acute floor. Now, the patient is transferred to the transitional care unit for continuity of care. PAST MEDICAL HISTORY: Significant for chronic fatigue syndrome, anemia. The patient had nephrostomy tube put in for atrophic kidney, hydronephrosis on the left side and pyelonephritis. Later on, nephrostomy tube was removed. The patient exposed to 2014 Lyme disease. Cardiac workup was negative. At that time, the patient also has history of syncopal episode. Recently visited [facility] [place]Note 2] and after that the patient feel sick. History of previous syncopal workup was negative admitted in 1998, 2010, and 2013. History of depression, history of Leopoldo's thyroiditis, history of ankle surgery and depression. FAMILY HISTORY: Father of lung cancer. Mother of carcinoma of the ovarian. Now, the patient is being followed closely by Dr. Liu for ovarian CA on surveillance program. SOCIAL HISTORY: Denies any history of alcohol abuse. CURRENT ALLERGIES: NONE. MEDICATIONS: The patient taking Suboxone, levothyroxine, and Xanax. REVIEW OF SYSTEMS: As per HPI. PHYSICAL EXAMINATION: VITAL SIGNS: Temperature afebrile, heart rate 60, and blood pressure 103/64. HEENT: PERRLA. Extraocular muscles intact. NECK: Supple. No carotid bruits. No thyromegaly. CHEST: Clear to auscultation. HEART: S1 and S2 regular. ABDOMEN: Soft. EXTREMITIES: Clubbing and cyanosis negative. LABORATORY DATA: Blood workup: WBC 6.8, hemoglobin 12, hematocrit 35, and platelet count 214. Chemistry shows sodium 140, potassium 4.1, chloride 103, carbon dioxide 31, anion gap of 10, BUN 11, and creatinine 1.0. The patient had echocardiography done that showed left ventricular function, normal ejection fraction 55% to 60%, mild mitral regurgitation, tricuspid regurgitation, systolic pressure 22. No pericardial effusion. Trace aortic regurgitation. IMPRESSION: The patient has dizziness, syncope, tachycardia, history of chronic fatigue syndrome, history of Leopoldo's thyroiditis, history of depression, history of Lyme disease in the past. History of elevated CA125. Family history of ovarian cancer being followed by Dr. Liu. RECOMMENDATIONS: I will put low dose Inderal for palpitation. She woke up from the palpitation. We will check sed rate as well as Lyme titer. Further recommendations depending upon the hospital course. We will give propranolol 10 mg t.i.d. hold if systolic blood pressure less than 110 and heart rate less than 60. We will follow with you. Thank you Dr. Alonso Mendez for providing me the opportunity in taking care of the patient. Jessika Loya MD
[2017-01-09] MEDS: ceFAZolin 1 gm in NS 1 GM/100 ML BAG IVPB SCH ×3 (05:25→21:31)
[2017-01-09] MEDS: Levothyroxine 25 MCG TAB PO SCH (05:25)
--- NOTE | 2017-01-09 09:20 | CP.PCM.PN ---
Subjective - Date & Time of Evaluation Date of Evaluation: 01/09/17 Time of Evaluation: : - Subjective Subjective: Progress note for Dr. Liu's service Patient seen and examined at bedside. No acute overnight events or new complaints. Denies chest pain, palpitations, SOB. Objective - Vital Signs/Intake and Output Vital Signs (last 24 hours): Temp Pulse Resp BP Pulse Ox 98.8 F 64 16 108/65 100 01/09/17 06:00 01/09/17 06:00 01/09/17 06:00 01/09/17 06:00 01/09/17 06:00 - Medications Medications: Current Medications Acetaminophen (Tylenol 325mg Tab) 650 mg PO Q4 PRN; Protocol PRN Reason: Pain, Mild (1-3) Last Admin: 01/09/17 08:29 Dose: 650 mg Alprazolam (Xanax) 0.25 mg PO Q8 PRN; Protocol PRN Reason: Anxiety Stop: 01/14/17 22:01 Last Admin: 01/09/17 08:39 Dose: 0.25 mg Clotrimazole (Lotrimin 1%) 1 gm TOP BID ASHLEE PRN Reason: Protocol Last Admin: 01/08/17 18:28 Dose: Not Given Cefazolin Sodium (Ancef 1gm In Ns) 1 gm in 100 mls @ 100 mls/hr IVPB Q8 ASHLEE PRN Reason: Protocol Last Admin: 01/09/17 05:25 Dose: 100 mls/hr Lactobacillus Acidophilus (Bacid Acidophilus) 1 cap PO BID ASHLEE PRN Reason: Protocol Last Admin: 01/08/17 18:28 Dose: 1 cap Levothyroxine Sodium (Synthroid) 25 mcg PO 0600 ASHLEE PRN Reason: Protocol Last Admin: 01/09/17 05:25 Dose: 25 mcg Mupirocin (Bactroban Ointment) 1 gm TOP BID ASHLEE PRN Reason: Protocol Last Admin: 01/08/17 18:28 Dose: Not Given Polyethylene Glycol (Miralax) 17 gm PO BID ASHLEE PRN Reason: Protocol Last Admin: 01/08/17 18:27 Dose: 17 gm Propranolol HCl (Inderal) 10 mg PO TID ASHLEE Last Admin: 01/08/17 18:29 Dose: 10 mg Tizanidine HCl (Zanaflex) 4 mg PO HS ASHLEE PRN Reason: Protocol Last Admin: 01/08/17 21:32 Dose: 4 mg Venlafaxine HCl (Effexor Xr) 150 mg PO DAILY ASHLEE PRN Reason: Protocol Last Admin: 01/08/17 11:18 Dose: 150 mg - Labs Labs: 01/08/17 05:20 01/08/17 05:20 - Constitutional Appears: No Acute Distress - Head Exam Head Exam: ATRAUMATIC, NORMAL INSPECTION, NORMOCEPHALIC - Eye Exam Eye Exam: EOMI, PERRL - ENT Exam ENT Exam: Mucous Membranes Moist - Respiratory Exam Respiratory Exam: Clear to Ausculation Bilateral. absent: Rales, Rhonchi, Wheezes - Cardiovascular Exam Cardiovascular Exam: +S1, +S2. absent: Gallop, Rubs, Murmur - GI/Abdominal Exam GI & Abdominal Exam: Soft. absent: Distended, Firm, Guarding, Rigid, Tenderness , Rebound - Neurological Exam Neurological Exam: Alert, Awake, Oriented x3 - Skin Skin Exam: Dry, Intact, Normal Color, Warm Assessment and Plan - Assessment and Plan (Free Text) Plan: 51yo female with history of lyme disease, nick's thyroiditis, ecoli- related sepsis, depression and recent travel to [place] presents with symptoms of presyncope 1. Pre-syncope -Orthostatic vital signs within normal limits -Telemetry with no apparent abnormalities, discontinued per cardiology recommendations -Cardiology consulted; clinically stable per cardiology; recommend outpatient stress test upon discharge -Neurology consulted - Dr. Rutledge; pre-syncope thought to be not neurologic in nature -CT Head revealed no acute abnormalities; see full report -EKG reviewed; normal sinus rhythm with no acute ST-T wave changes -CXR revealed no active disease -Echocardiogram reviewed; LVEF 55-60%; refer to full report -Patient started on low dose propranolol for palpitations with parameters to hold if SBP < 110 or HR < 60 2. UTI -Urine culture revealed beta hemolytic group B strep -Patient started on ancef per ID recommendations; may be transitioned to PO keflex 3. Skin lesions -Continue clotrimazole/bactroban ointments per ID recommendations 4. History of lyme disease -Lyme titers pending -Patient reportedly was treated with doxycycline previously 5. Disposition -Patient currently undergoing physical rehabilitation in the TCU for deconditioning. Patient seen and case discussed with attending, Dr. Liu
[2017-01-09] MEDS: Lactobacillus Acidophilus 500 MU Cap PO SCH ×2 (09:51→17:21)
[2017-01-09] MEDS: Venlafaxine 75 mg ER Cap PO SCH (09:52)
[2017-01-09] MEDS: Clotrimazole 1% Cream(30 gm) TOP SCH ×2 (09:53→17:22)
[2017-01-09] MEDS: POLYETHYLENE GLYCOL 3350 17 GM/Dose PACKET PO SCH ×2 (09:58→17:23)
--- NOTE | 2017-01-09 14:27 | PN ---
DATE: 01/09/2017 LOCATION: The patient is in room 319, bed 1. REASON FOR CONSULTATION AND FOLLOWUP: Palpitations, dizziness, and presyncope. SUBJECTIVE: The patient lying comfortable in bed without any chest pain, shortness of breath, or palpitation. PHYSICAL EXAMINATION: VITAL SIGNS: Blood pressure 112/74, respirations 18, pulse 69 and temperature 98.5. HEENT: Head is normocephalic. Eyes, pupils normal. Conjunctivae pale. Nose and throat normal. NECK: JVP low. Carotid's equal. Thorax, AP diameter normal. LUNGS: Clear. CARDIOVASCULAR: S1 and S2. ABDOMEN: Soft and nontender. No organomegaly. Bowel sounds are normal. EXTREMITIES: No clubbing. No cyanosis. LABORATORY DATA: WBC 6.4, hemoglobin 12.0, hematocrit 35.0 and platelets 214. Sodium 140, potassium 4.4, BUN 11, creatinine 1.0, random glucose 87. AST, ALT, total protein and albumin normal. The patient had echo on this admission when she was on medical floor, it showed normal LV ejection fraction with 55% to 60%, mild mitral regurgitation, trace aortic regurgitation. DIAGNOSES: Palpitations, dizziness, near syncope, history of chronic fatigue syndrome, history of Leopoldo disease with hypothyroidism, depression, history of Lyme disease in the past, history of elevated CA-125, family history of ovarian cancer being by lillian Cai. PLAN: Continue present therapy along with physical therapy for deconditioning. The patient on Ancef 1 g IV daily, Effexor XR 150 mg p.o. daily, Inderal 10 mg p.o. t.i.d., Synthroid 25 mcg p.o. daily, Xanax 0.25 p.r.n., Zanaflex 4 mg p.o. at bedtime. We will follow with you. Jessika Moore MD
--- NOTE | 2017-01-09 18:29 | CON ---
HISTORY OF PRESENT ILLNESS: Shortly, the patient is a 51-year-old female with Lyme disease, Leopoldo thyroiditis, E. coli related sepsis, and depression. The patient traveled to [place] and was admitted on the medical site for presyncopal episode. Psychiatric consult was called for evaluation of medication. The patient is on psychotropic medications and the patient requested to see psychiatrist. The patient was seen and examined. The patient presented to be pleasant and cooperative. Earlier, the patient observed participating in physical therapy. The patient said that she has history of major depressive disorder and she was stabilized on Vyvanse, this is stimulant. The patient also reported that she has chronic neck problem and she had neck injury in the past. Initially, she was on pain medications, but she was switched to Suboxone. At present moment, the patient said that she needs to be on Suboxone as well as on stimulant in order not to have withdrawal symptoms. This promotion writer had no Suboxone, moreover Vyvanse is non-formulary in the hospital. The patient said that she use to see Dr. Waggoner as outpatient and right now she moved permanently to [place] and she is looking for psychiatrist to follow up with. The patient also reported that she has poor support from the family and her mother and father in 2007 and 2012. The patient had psychiatrist in [place], her name is Funmi Cheek, as well as she has therapist, Jazmine Riley in [place]. The patient said that she has one psychiatric admission in [facility] where she stayed for eight days. The patient denied history of suicidal attempt. Vital signs are stable. MEDICATIONS: Reviewed. The patient is on Tylenol, Xanax 0.25 mg q. 8 hours p.r.n., cefazolin, clotrimazole, lactobacillus, Synthroid, mupirocin, polyethylene glycol, propranolol, Zanaflex, and Effexor 150 mg daily. LABORATORY DATA: Labs reviewed. Most recent was from yesterday and no acute changes. MENTAL STATUS EXAMINATION: The patient presented to be anxious, depressed, tearful at times. During the interview, intermittent eye contact. Speech was normal rate, tone, quality, and quantity. Mood described, "I am very anxious, I am depressed and I need to have my medications". Affect was tearful, mood congruent. Thought process seems to be over inclusive but not circumstantial or tangential. Thought content: The patient denies visual, auditory, or tactile hallucinations. Denies paranoid ideations. The patient denies thoughts of harming herself or others. Denied intent or plan. Insight and judgment are fair. Impulses are well controlled. IMPRESSION: As per history, major depressive disorder, multiple medical comorbidities. Rule out mood disorder due to general medication condition. PLAN: Continue current management. This promotion writer discussed case with Dr. Waggoner because the patient is looking for psychiatrist in the community. On top of that, the patient has history of seeing Dr. Waggoner in his outpatient clinic. The patient will be seen by Dr. Waggoner today. The patient was happy to hear that news. This promotion writer will sign off from now on. Dr. Waggoner will take care of this patient, nurse notified. Thank you very much for letting me to participate. Jennifer Preciado MD
[2017-01-10] MEDS: ceFAZolin 1 gm in NS 1 GM/100 ML BAG IVPB SCH ×3 (05:31→21:13)
[2017-01-10] MEDS: Levothyroxine 25 MCG TAB PO SCH (05:32)
[2017-01-10] MEDS: Venlafaxine 75 mg ER Cap PO SCH (10:54)
[2017-01-10] MEDS: Lactobacillus Acidophilus 500 MU Cap PO SCH ×2 (10:54→18:15)
[2017-01-10] MEDS: POLYETHYLENE GLYCOL 3350 17 GM/Dose PACKET PO SCH ×2 (10:55→18:16)
[2017-01-10] MEDS: Clotrimazole 1% Cream(30 gm) TOP SCH ×2 (10:55→18:16)
--- NOTE | 2017-01-10 13:04 | CP.PCM.PN ---
Subjective - Date & Time of Evaluation Date of Evaluation: 01/10/17 Time of Evaluation: 11:15 - Subjective Subjective: Comfortable, afebrile, no diarrhea and in fact is constipated, no dysuria, less itching on the face. Objective - Vital Signs/Intake and Output Vital Signs (last 24 hours): Temp Pulse Resp BP Pulse Ox 99.2 F 63 18 112/77 97 01/09/17 17:38 01/09/17 17:38 01/09/17 17:38 01/09/17 17:38 01/09/17 17:38 - Medications Medications: Current Medications Acetaminophen (Tylenol 325mg Tab) 650 mg PO Q4 PRN; Protocol PRN Reason: Pain, Mild (1-3) Last Admin: 01/09/17 08:29 Dose: 650 mg Alprazolam (Xanax) 0.25 mg PO Q8 PRN; Protocol PRN Reason: Anxiety Stop: 01/14/17 22:01 Last Admin: 01/09/17 23:15 Dose: 0.25 mg Clotrimazole (Lotrimin 1%) 1 gm TOP BID ASHLEE PRN Reason: Protocol Last Admin: 01/09/17 17:22 Dose: 1 applic Cefazolin Sodium (Ancef 1gm In Ns) 1 gm in 100 mls @ 100 mls/hr IVPB Q8 ASHLEE PRN Reason: Protocol Last Admin: 01/10/17 05:31 Dose: 100 mls/hr Lactobacillus Acidophilus (Bacid Acidophilus) 1 cap PO BID ASHLEE PRN Reason: Protocol Last Admin: 01/09/17 17:21 Dose: 1 cap Levothyroxine Sodium (Synthroid) 25 mcg PO 0600 ASHLEE PRN Reason: Protocol Last Admin: 01/10/17 05:32 Dose: 25 mcg Mupirocin (Bactroban Ointment) 1 gm TOP BID ASHLEE PRN Reason: Protocol Last Admin: 01/09/17 17:21 Dose: 1 applic Polyethylene Glycol (Miralax) 17 gm PO BID ASHLEE PRN Reason: Protocol Last Admin: 01/09/17 17:23 Dose: 17 gm Propranolol HCl (Inderal) 10 mg PO TID ASHLEE Last Admin: 01/09/17 17:21 Dose: 10 mg Tizanidine HCl (Zanaflex) 4 mg PO HS ASHLEE PRN Reason: Protocol Last Admin: 01/08/17 21:32 Dose: 4 mg Venlafaxine HCl (Effexor Xr) 150 mg PO DAILY ASHLEE PRN Reason: Protocol Last Admin: 01/09/17 09:52 Dose: 150 mg - Labs Labs: 01/08/17 05:20 01/08/17 05:20 - Constitutional Appears: Non-toxic, No Acute Distress - Head Exam Head Exam: NORMAL INSPECTION - ENT Exam ENT Exam: Mucous Membranes Moist - Neck Exam Neck Exam: absent: Lymphadenopathy, Meningismus - Respiratory Exam Respiratory Exam: Decreased Breath Sounds - Cardiovascular Exam Cardiovascular Exam: +S1, +S2 - GI/Abdominal Exam GI & Abdominal Exam: Soft. absent: Tenderness Assessment and Plan - Assessment and Plan (Free Text) Plan: Assessment Group B Strep lower UTI Multiple skin lesions on the face, legs R/O fungal disease; patient with history of apparent bed bug bites apparent Lyme disease infection history of sepsis due to E. coli pyelonephritis S/P nephrostomy tube placement ( 2015) history of depression Leopoldo thyroid disease Plan continue Clotrimazole cream and Bactroban ointment over the skin lesions continue Cefazolin and can be switched to PO Keflex to complete 5-7 days of therapy (day 4) Follow up stool for ova and parasites follow up beta glucan test will continue to monitor clinical response discussed with Dr. Liu previously
--- NOTE | 2017-01-10 22:03 | CP.PCM.PN ---
Subjective - Date & Time of Evaluation Date of Evaluation: 01/10/17 Time of Evaluation: 11:25 - Subjective Subjective: Progress note for Dr. Liu's service. Patient seen and examined at bedside. No acute overnight events or new complaints. Denies cp, palpitations, sob. Objective - Vital Signs/Intake and Output Vital Signs (last 24 hours): Temp Pulse Resp BP Pulse Ox 99.1 F 82 14 117/74 97 01/10/17 16:43 01/10/17 18:15 01/10/17 16:43 01/10/17 18:15 01/10/17 16:43 - Medications Medications: Current Medications Acetaminophen (Tylenol 325mg Tab) 650 mg PO Q4 PRN; Protocol PRN Reason: Pain, Mild (1-3) Last Admin: 01/10/17 16:03 Dose: 650 mg Alprazolam (Xanax) 0.25 mg PO Q8 PRN; Protocol PRN Reason: Anxiety Stop: 01/14/17 22:01 Last Admin: 01/09/17 23:15 Dose: 0.25 mg Clotrimazole (Lotrimin 1%) 1 gm TOP BID ASHLEE PRN Reason: Protocol Last Admin: 01/10/17 18:16 Dose: 1 applic Cefazolin Sodium (Ancef 1gm In Ns) 1 gm in 100 mls @ 100 mls/hr IVPB Q8 ASHLEE PRN Reason: Protocol Last Admin: 01/10/17 21:13 Dose: 100 mls/hr Lactobacillus Acidophilus (Bacid Acidophilus) 1 cap PO BID ASHLEE PRN Reason: Protocol Last Admin: 01/10/17 18:15 Dose: 1 cap Levothyroxine Sodium (Synthroid) 25 mcg PO 0600 ASHLEE PRN Reason: Protocol Last Admin: 01/10/17 05:32 Dose: 25 mcg Multivitamins (Thera Tab) 1 tab PO 0800 ASHLEE Mupirocin (Bactroban Ointment) 1 gm TOP BID ASHLEE PRN Reason: Protocol Last Admin: 01/10/17 18:15 Dose: 1 applic Nystatin (Nystatin Oral Susp) 5 ml PO TID ASHLEE Polyethylene Glycol (Miralax) 17 gm PO BID ASHLEE PRN Reason: Protocol Last Admin: 01/10/17 18:16 Dose: 17 gm Propranolol HCl (Inderal) 10 mg PO TID ASHLEE Last Admin: 01/10/17 18:15 Dose: 10 mg Tizanidine HCl (Zanaflex) 4 mg PO HS ASHLEE PRN Reason: Protocol Last Admin: 01/10/17 21:13 Dose: 4 mg Venlafaxine HCl (Effexor Xr) 150 mg PO DAILY ASHLEE PRN Reason: Protocol Last Admin: 01/10/17 10:54 Dose: 150 mg Vitamin B Complex/Vit C/Folic Acid (Nephro-[place]) 1 tab PO 0800 [facility] - Labs Labs: 01/08/17 05:20 01/08/17 05:20 - Constitutional Appears: No Acute Distress - Head Exam Head Exam: ATRAUMATIC, NORMAL INSPECTION, NORMOCEPHALIC - Eye Exam Eye Exam: EOMI, PERRL - ENT Exam ENT Exam: Mucous Membranes Moist - Neck Exam Neck Exam: Normal Inspection - Respiratory Exam Respiratory Exam: Clear to Ausculation Bilateral. absent: Rales, Rhonchi, Wheezes - Cardiovascular Exam Cardiovascular Exam: RRR, +S1, +S2. absent: Gallop, Rubs, Murmur - GI/Abdominal Exam GI & Abdominal Exam: Soft. absent: Distended, Firm, Guarding, Rigid, Tenderness , Rebound - Neurological Exam Neurological Exam: Alert, Awake, Oriented x3 - Psychiatric Exam Psychiatric exam: Normal Affect, Normal Mood - Skin Skin Exam: Dry, Intact, Normal Color, Warm Assessment and Plan - Assessment and Plan (Free Text) Plan: 51yo female with history of lyme disease, nick's thyroiditis, ecoli- related sepsis, depression and recent travel to [place] presents with symptoms of presyncope 1. UTI -Urine culture revealed beta hemolytic group B strep -Patient started on ancef per ID recommendations; may be transitioned to PO keflex upon discharge 2. Skin lesions -Continue clotrimazole/bactroban ointments per ID recommendations 3. History of lyme disease -Lyme titers pending -Patient reportedly was treated with doxycycline previously 4. Pre-syncope -Orthostatic vital signs within normal limits -Telemetry with no apparent abnormalities, discontinued per cardiology recommendations -Cardiology consulted; clinically stable per cardiology; recommend outpatient stress test upon discharge -Neurology consulted - Dr. Rutledge; pre-syncope thought to be not neurologic in nature -CT Head revealed no acute abnormalities; see full report -EKG reviewed; normal sinus rhythm with no acute ST-T wave changes -CXR revealed no active disease -Echocardiogram reviewed; LVEF 55-60%; refer to full report -Patient started on low dose propranolol for palpitations with parameters to hold if SBP < 110 or HR < 60 5. Disposition -Patient currently undergoing physical rehabilitation in the TCU for deconditioning. Patient seen and case discussed with attending, Dr. Liu
--- NOTE | 2017-01-10 22:20 | PN ---
DATE: 01/10/2017 HOSPITAL VISIT: On TCU. REFERRING PHYSICIAN: Dr. Liu SUBJECTIVE: The patient is a 51-year-old female. She was lying and awake in bed with friend at the bedside in no acute distress with significant improvement in her impetiginous changes to her face, now being treated on TCU for group B strep, lower UTI, with history of Lyme disease infection with the patient now being seen by Dr. Preciado of psychiatry with referral to Dr. Waggoner who she had seen in the past awaiting his consult. With this, the patient is now no longer taking her Suboxone, which was outdated and then therefore discontinued by Dr. Liu with the patient with no apparent withdrawal effect, now being treated with medicines as listed to include Effexor, Inderal, MiraLax, Synthroid, Tylenol, Xanax, Zanaflex, and Ancef IV. Also Bactroban. She is otherwise participating with reconditioning and is in no acute distress. PHYSICAL EXAMINATION VITAL SIGNS: Temperature 99.1, pulse 82, respirations 14, blood pressure 117/74, pulse ox 97%. HEENT: Unremarkable. NECK: Supple. HEART: Regular rate. LUNGS: Clear. ABDOMEN: Soft and nontender. EXTREMITIES: No edema. SKIN: Warm, dry, and clear with improvement of her impetiginous changes of her face. On physical exam, inspection to her oral pharynx shows her tongue is coated with what appears to be a candidal infection. LABORATORY DATA: The patient's labs were done two days prior and after monitoring on the medical floor and on the TCU floor had been within normal range and will not be repeated for now. Her urine culture showed 1500,000 colonies of beta-hemolytic strep group B for which she is being treated by Dr. Kim and Dr. Arredondo infectious disease consultations. ASSESSMENT: The assessment for this patient is that of iron deficiency anemia improved, deconditioning, history of presyncopal episode, rule out cardio etiology versus neurologic condition. History of Lyme disease, history of pyelonephritis, depression, and UTI. PLAN: Plan for this patient after conversation with Dr. Liu is to continue present medical regimen, her hypothyroidism is being controlled with her Synthroid. The dose was appropriate as her TSH was within normal range. We will add Mycostatin swish and swallow to her regimen. Continue Bactroban. We will change antibiotics from IV to oral as per Dr. Arredondo and Dr. Kim. We will continue her present medical regimen and add multivitamin and B-complex vitamin for her tongue lesion changes. Monitor clinically reconditioning to continue. Alonso Mendez MD
[2017-01-11] MEDS: ceFAZolin 1 gm in NS 1 GM/100 ML BAG IVPB SCH ×2 (05:23→14:50)
[2017-01-11] MEDS: Levothyroxine 25 MCG TAB PO SCH (05:23)
[2017-01-11] MEDS: Multivitamin Vitamin B Complex (Nephro-Vite) Tab PO SCH (08:16)
[2017-01-11] MEDS: Multivitamin Therapeutic Tab PO SCH (08:16)
--- NOTE | 2017-01-11 08:54 | PN ---
DATE: 01/10/2017 REASON FOR CONSULTATION: Palpation, dizziness and presyncope. SUBJECTIVE: Denies any chest pain, denies any palpitation and feels better, though still loses sleep and tiered, but no palpitation. OBJECTIVE: GENERAL: Sitting at bedside, not in apparent distress. VITAL SIGNS: Temperature afebrile, heart rate 74 and blood pressure 126/65. HEENT: PERRLA. Extraocular muscles are intact. NECK: Supple. No carotid bruit or thyromegaly. HEART: S1 and S2, regular. CHEST: Clear to auscultation. ABDOMEN: Soft. EXTREMITIES: Clubbing and cyanosis negative. LABORATORY DATA: Blood workup as follows: WBC 6.8, hemoglobin 12, hematocrit 35 and platelet count 214. Chemistry shows sodium of 140, potassium 4.4, chloride 103, carbon dioxide 31, anion gap 14, BUN 11 and creatinine is 1.0. IMPRESSION: Near syncope, chronic fatigue syndrome, palpation, Leopoldo's disease with history of hypothyroidism, history of Lyme disease in the past, history of elevated CA 125, family history of ovarian cancer, being followed by Dr. Liu of the body. RECOMMENDATION: Continue Xanax. We will follow status is stable. Palpitation significantly improved. Thank you Dr. Mendez for providing me the opportunity to taking care of the patient, Mckenna Miranda. We will follow with you. Jessika Loya MD
--- NOTE | 2017-01-11 09:44 | CON ---
DATE: IDENTIFYING INFORMATION: The patient is a 51-year-old single white female with a past medical history of Leopoldo's thyroiditis, E. coli related sepsis, hydronephrosis relieved by a percutaneous nephrostomy and tube replacement, who came to the emergency room complaining of fatigue and presyncope. The patient underwent a workup that included a CT scan of her head, echocardiogram, and extensive medical workup and transferred to the Transitional Care Unit for rehabilitation. She has been complaining of fatigue and weakness. She does have a history of depression and of opioid dependence. The patient had been under my care in 1998 and 1999 for a depressive disorder which emanated at that time after she had suffered a neck and possibly head injury gotten when she banged her head while at a [employer] store. She had a history of depression prior to that and had been on several antidepressants and was deemed to be treatment resistant and thus at that time had been put on a monoamine oxidase inhibitor (probably [place] according to the patient's recollection), but she experienced a change in personality somewhat without significant relief of her symptoms. The patient is a [place] and a graduate of [employer], having majored in biology. 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 She had during the course of her treatments been under the care of a neurologist in the [facility] area, Dr. Char Fitzgerald, who had treated her with opioids, Effexor, and after a period of time she had been treated with narcotics for her neck and head pain (Vicodin followed by OxyContin according to the patient), was placed on Suboxone which she has been on for many years. For a significant period of time, she has been maintained on 4 mg of Suboxone, which she indicating she does not abuse this, this offered her pain relief and mood palliation. The patient spoke also of other occurrences such as her having in had been living in her own apartment, but having been bitten by bed bugs which she felt made her feel sicker. She then went to live with a male friend in [place] (a man that she has known now for 13 years - early in this relationship it was romantic, but they are now only friends according to the patient). She came back, but then again suffered another attack by bed bugs and went back to [place] again. The patient had in the course of this 13-year relationship with Ant who also had a brief romantic relationship with an alcoholic, but this has since ended. Earlier, in her 20s, she also had a relationship with another individual. She has never been and has never been . Both of her parents have of cancer. She indicated that she has a sister who has seen mental health workers because of depression also. She had become estranged from her brother and sister over an will attestation after her father and more recent, she has reconciled to a degree. The patient has in recent years been under the care of the psychiatrist in [place], Dr. Penny Cheek, although she had been started on antidepressant that she is on, Effexor 150 mg [address] day [address] Dr. Fitzgerald in approximately . Thus, the medications that have offered her relief for both her mood disturbance and her opioid dependence have been initiated by Dr. Fitzgerald and these consists of the Suboxone and Effexor. The patient speaks of, but has not made any firm plans to return to the work force, indicating she would do so when she feels better. There is also this general sense of fatigue and malaise that holds her back from thinking in terms of pursuing a more meaningful significant other relationship. The patient is presently alert, oriented, as I said , speaks of mild depression, is not suicidal, homicidal or psychotic, but does speak of anxiety. DIAGNOSES:: Mood disorder, not otherwise specified; history of opioid dependence; rule out somatoform disorder, not otherwise specified. RECOMMENDATIONS: The patient is being maintained presently on Effexor 150 XR, along with Ancef, Bactroban, Inderal 10 mg t.i.d., Lotrimin, MiraLax, vitamin B complex, Synthroid 25 mcg, nystatin, multivitamins and Zanaflex 4 mg at bedtime. The plan presently is to maintain the patient on her Effexor and to once again start her on the Suboxone that she had been on (4 mg per day). As the hospital pharmacy does not carry this nor does our outpatient pharmacy, I have, reviewed her situation with nursing and had given the patient's friend a prescription for Suboxone 2 mg two tablets q.a.m. number 56 with the patient's friend to redeem this at a local pharmacy in the a.m. (01/11/2017) and bring that prescription to the hospital to be checked by our pharmacy and then given to the patient as prescribed. Please feel free to contact me if there are any difficulties. Dayron Waggoner MD/ PhD
[2017-01-11] MEDS: Lactobacillus Acidophilus 500 MU Cap PO SCH ×2 (10:52→17:20)
[2017-01-11] MEDS: Nystatin 100,000 Units/ml Oral Susp 5 ml UD PO SCH ×3 (10:53→17:20)
[2017-01-11] MEDS: Venlafaxine 75 mg ER Cap PO SCH (10:54)
[2017-01-11] MEDS: POLYETHYLENE GLYCOL 3350 17 GM/Dose PACKET PO SCH ×2 (10:54→17:20)
[2017-01-11] MEDS: Clotrimazole 1% Cream(30 gm) TOP SCH ×2 (10:56→17:21)
--- NOTE | 2017-01-11 11:10 | CP.PCM.PN ---
Subjective - Date & Time of Evaluation Date of Evaluation: 01/11/17 Time of Evaluation: 10:15 - Subjective Subjective: Comfortable in bed, not in distress, afebrile. No diarrhea, no pain or itching on her face. Objective - Vital Signs/Intake and Output Vital Signs (last 24 hours): Temp Pulse Resp BP Pulse Ox 99.1 F 82 14 117/74 97 01/10/17 16:43 01/10/17 18:15 01/10/17 16:43 01/10/17 18:15 01/10/17 16:43 - Medications Medications: Current Medications Acetaminophen (Tylenol 325mg Tab) 650 mg PO Q4 PRN; Protocol PRN Reason: Pain, Mild (1-3) Last Admin: 01/11/17 06:14 Dose: 650 mg Alprazolam (Xanax) 0.25 mg PO Q8 PRN; Protocol PRN Reason: Anxiety Stop: 01/14/17 22:01 Last Admin: 01/09/17 23:15 Dose: 0.25 mg Clotrimazole (Lotrimin 1%) 1 gm TOP BID ASHLEE PRN Reason: Protocol Last Admin: 01/10/17 18:16 Dose: 1 applic Cefazolin Sodium (Ancef 1gm In Ns) 1 gm in 100 mls @ 100 mls/hr IVPB Q8 ASHLEE PRN Reason: Protocol Last Admin: 01/11/17 05:23 Dose: 100 mls/hr Lactobacillus Acidophilus (Bacid Acidophilus) 1 cap PO BID ASHLEE PRN Reason: Protocol Last Admin: 01/10/17 18:15 Dose: 1 cap Levothyroxine Sodium (Synthroid) 25 mcg PO 0600 ASHLEE PRN Reason: Protocol Last Admin: 01/11/17 05:23 Dose: 25 mcg Multivitamins (Thera Tab) 1 tab PO 0800 ASHLEE Mupirocin (Bactroban Ointment) 1 gm TOP BID ASHLEE PRN Reason: Protocol Last Admin: 01/10/17 18:15 Dose: 1 applic Nystatin (Nystatin Oral Susp) 5 ml PO TID ASHLEE Polyethylene Glycol (Miralax) 17 gm PO BID ASHLEE PRN Reason: Protocol Last Admin: 01/10/17 18:16 Dose: 17 gm Propranolol HCl (Inderal) 10 mg PO TID ASHLEE Last Admin: 01/10/17 18:15 Dose: 10 mg Tizanidine HCl (Zanaflex) 4 mg PO HS ASHLEE PRN Reason: Protocol Last Admin: 01/10/17 21:13 Dose: 4 mg Venlafaxine HCl (Effexor Xr) 150 mg PO DAILY ASHLEE PRN Reason: Protocol Last Admin: 01/10/17 10:54 Dose: 150 mg Vitamin B Complex/Vit C/Folic Acid (Nephro-[place]) 1 tab PO 0800 [facility] - Labs Labs: 01/08/17 05:20 01/08/17 05:20 - Constitutional Appears: Non-toxic, No Acute Distress - Head Exam Head Exam: NORMAL INSPECTION - ENT Exam ENT Exam: Mucous Membranes Moist - Neck Exam Neck Exam: absent: Meningismus - Respiratory Exam Respiratory Exam: Decreased Breath Sounds - Cardiovascular Exam Cardiovascular Exam: +S1, +S2 - GI/Abdominal Exam GI & Abdominal Exam: Soft. absent: Tenderness Assessment and Plan - Assessment and Plan (Free Text) Plan: Assessment Group B Strep lower UTI Multiple skin lesions on the face, legs R/O fungal disease; patient with history of apparent bed bug bites apparent Lyme disease infection history of sepsis due to E. coli pyelonephritis S/P nephrostomy tube placement ( 2015) history of depression Leopoldo thyroid disease Plan continue Clotrimazole cream and Bactroban ointment over the skin lesions continue Cefazolin and can be switched to PO Keflex to complete 5-7 days of therapy (day 5) Follow up stool for ova and parasites follow up beta glucan test will continue to monitor clinical response discussed with Dr. Liu previously
--- NOTE | 2017-01-11 15:27 | CP.PCM.PN ---
Subjective - Date & Time of Evaluation Date of Evaluation: 01/11/17 Time of Evaluation: 15:16 - Subjective Subjective: Progress note for Dr. Liu's service Patient seen and examined at bedside this morning. No acute overnight events or new complaints reported. She states that she had difficulty sleeping last night and feels tired as a result. Reports being worried about her living situation. Discussed the need to follow up with Dr. Hernandez as an outpatient. Denied chest pain, palpitations, SOB. Objective - Vital Signs/Intake and Output Vital Signs (last 24 hours): Temp Pulse Resp BP Pulse Ox 97.6 F 77 12 119/77 100 01/11/17 11:17 01/11/17 14:46 01/11/17 11:17 01/11/17 14:46 01/11/17 11:17 - Medications Medications: Current Medications Acetaminophen (Tylenol 325mg Tab) 650 mg PO Q4 PRN; Protocol PRN Reason: Pain, Mild (1-3) Last Admin: 01/11/17 06:14 Dose: 650 mg Alprazolam (Xanax) 0.25 mg PO Q8 PRN; Protocol PRN Reason: Anxiety Stop: 01/14/17 22:01 Last Admin: 01/09/17 23:15 Dose: 0.25 mg Cephalexin Monohydrate (Keflex) 500 mg PO TID ASHLEE PRN Reason: Protocol Stop: 01/17/17 10:01 Clotrimazole (Lotrimin 1%) 1 gm TOP BID ASHLEE PRN Reason: Protocol Last Admin: 01/11/17 10:56 Dose: Not Given Lactobacillus Acidophilus (Bacid Acidophilus) 1 cap PO BID ASHLEE PRN Reason: Protocol Last Admin: 01/11/17 10:52 Dose: 1 cap Levothyroxine Sodium (Synthroid) 25 mcg PO 0600 ASHLEE PRN Reason: Protocol Last Admin: 01/11/17 05:23 Dose: 25 mcg Multivitamins (Thera Tab) 1 tab PO 0800 ASHLEE Last Admin: 01/11/17 08:16 Dose: 1 tab Mupirocin (Bactroban Ointment) 1 gm TOP BID ASHLEE PRN Reason: Protocol Last Admin: 01/11/17 10:56 Dose: Not Given Nystatin (Nystatin Oral Susp) 5 ml PO TID ASHLEE Last Admin: 01/11/17 14:50 Dose: 5 ml Polyethylene Glycol (Miralax) 17 gm PO BID ASHLEE PRN Reason: Protocol Last Admin: 01/11/17 10:54 Dose: 17 gm Propranolol HCl (Inderal) 10 mg PO TID [facility] Last Admin: 01/11/17 14:46 Dose: 10 mg Tizanidine HCl (Zanaflex) 4 mg PO HS ASHLEE PRN Reason: Protocol Last Admin: 01/10/17 21:13 Dose: 4 mg Venlafaxine HCl (Effexor Xr) 150 mg PO DAILY ASHLEE PRN Reason: Protocol Last Admin: 01/11/17 10:54 Dose: 150 mg Vitamin B Complex/Vit C/Folic Acid (Nephro-[place]) 1 tab PO 0800 [facility] Last Admin: 01/11/17 08:16 Dose: 1 tab - Labs Labs: 01/08/17 05:20 01/08/17 05:20 - Constitutional Appears: No Acute Distress - Head Exam Head Exam: ATRAUMATIC, NORMAL INSPECTION, NORMOCEPHALIC - Eye Exam Eye Exam: EOMI, PERRL - ENT Exam ENT Exam: Mucous Membranes Moist - Neck Exam Neck Exam: Normal Inspection - Respiratory Exam Respiratory Exam: Clear to Ausculation Bilateral. absent: Rales, Rhonchi, Wheezes - Cardiovascular Exam Cardiovascular Exam: RRR, +S1, +S2. absent: Gallop, Rubs, Murmur - GI/Abdominal Exam GI & Abdominal Exam: Soft. absent: Distended, Firm, Guarding, Rigid, Tenderness , Rebound - Extremities Exam Extremities Exam: Normal Inspection. absent: Pedal Edema - Neurological Exam Neurological Exam: Alert, Awake, CN II-XII Intact, Oriented x3 - Psychiatric Exam Psychiatric exam: Normal Affect, Normal Mood - Skin Skin Exam: Dry, Intact, Normal Color, Warm Assessment and Plan - Assessment and Plan (Free Text) Plan: 51yo female with history of lyme disease, nick's thyroiditis, ecoli- related sepsis, depression and recent travel to [place] presents with symptoms of presyncope 1. UTI -Urine culture revealed beta hemolytic group B strep -Patient transitioned to PO keflex per ID recommendations; Keflex 500mg PO TID for 5 days 2. Skin lesions -Continue clotrimazole/bactroban ointments per ID recommendations 3. History of lyme disease -Lyme titers pending -Patient reportedly was treated with doxycycline previously 4. Pre-syncope -Orthostatic vital signs within normal limits -Telemetry with no apparent abnormalities, discontinued per cardiology recommendations -Cardiology consulted; clinically stable per cardiology; recommend outpatient stress test upon discharge -Neurology consulted - Dr. Rutledge; pre-syncope thought to be not neurologic in nature -CT Head revealed no acute abnormalities; see full report -EKG reviewed; normal sinus rhythm with no acute ST-T wave changes -CXR revealed no active disease -Echocardiogram reviewed; LVEF 55-60%; refer to full report -Patient started on low dose propranolol for palpitations with parameters to hold if SBP < 110 or HR < 60 5. Disposition -Patient currently undergoing physical rehabilitation in the TCU for deconditioning. Patient seen and case discussed with attending, Dr. Liu
--- NOTE | 2017-01-11 17:11 | PN ---
DATE: 01/11/2017 LOCATION: The patient is room 319, bed 1. REASON FOR CONSULTATION: Palpitation, dizziness, and presyncope. SUBJECTIVE: The patient denies chest pain, shortness of breath, or palpitation. She still states that sometimes feel dizzy. PHYSICAL EXAMINATION: VITAL SIGNS: Blood pressure 119/77, respirations 18, pulse 82, and temperature 99.1 HEENT: Head is normocephalic. Pupils normal. Conjunctivae normal. Nose and throat normal. NECK: JVP low. Carotid equal. THORAX: AP diameter normal. LUNGS: Clear. CARDIOVASCULAR: S1 and S2. ABDOMEN: Soft. No tenderness. No organomegaly. Bowel sounds normal. EXTREMITIES: No clubbing. No cyanosis. LABORATORY DATA: Done on 01/08/2017, they were reported no previous notes. DIAGNOSES: Near syncope, chronic fatigue syndrome, palpation, Leopoldo's disease with history of hypothyroidism, history of Lyme disease in the past, history of elevated CA-125, family history of ovarian cancer, being followed by Dr. Liu. The patient had echocardiogram recently on this admission on medical floor, which reported in her previous notes. The patient's palpitation improved with the patient receiving propranolol 10 mg t.i.d., Synthroid 25 mcg p.o. daily, and Effexor XR 150 p.o. daily. We will continue present therapy. We will follow with you. Jessika Moore MD
[2017-01-11 18:00] LABS: LYME IGM NEGATIVE (NEGATIVE)
[2017-01-11 18:03] LABS: LYME IGG NEGATIVE (NEGATIVE)
[2017-01-12] MEDS: Levothyroxine 25 MCG TAB PO SCH (05:32)
[2017-01-12 06:31] VITALS: PULSE 72; RESP 16; TEMP 98.1; O2SAT 96
[2017-01-12] MEDS: Multivitamin Therapeutic Tab PO SCH (09:30)
[2017-01-12] MEDS: Venlafaxine 75 mg ER Cap PO SCH (09:31)
[2017-01-12] MEDS: Multivitamin Vitamin B Complex (Nephro-Vite) Tab PO SCH (09:31)
[2017-01-12] MEDS: Lactobacillus Acidophilus 500 MU Cap PO SCH (09:31)
[2017-01-12] MEDS: Clotrimazole 1% Cream(30 gm) TOP SCH (09:34)
[2017-01-12] MEDS: POLYETHYLENE GLYCOL 3350 17 GM/Dose PACKET PO SCH (09:35)
[2017-01-12] MEDS: Nystatin 100,000 Units/ml Oral Susp 5 ml UD PO SCH ×2 (09:35→13:59)
[2017-01-12 14:03] VITALS: BP 103/64
--- NOTE | 2017-01-12 15:07 | PN ---
DATE: 01/12/2017 SUBJECTIVE: The patient is in bed, in no acute distress, nontoxic. PHYSICAL EXAMINATION: VITAL SIGNS: Temperature is 98, blood pressure is 114/70 and respiratory rate of 18. HEENT: Unremarkable. NECK: Supple. LUNGS: Decreased breath sounds. HEART: Normal S1 and S2. ABDOMEN: Soft and nontender. LABORATORY DATA: Reveals a white count of 6.4, hemoglobin of 12 and platelets of 214. Chemistries reveal the patient has a BUN of 11 and creatinine of 1.0. Lyme serology is negative. Microbiology reveals cultures are negative, the blood cultures. The urine cultures repeat one from the 01/05/3017 is beta-hemolytic strep. MEDICATIONS: Review of orders reveals the patient to be on p.o. Keflex. ASSESSMENT AND PLAN: A 51-year-old female with group B streptococcus urinary tract infection, multiple skin lesions on the face and a history of Lyme serology and history of babesiosis in the past, followed by Dr. Zacarias Trevino, history of depression and Leopoldo's thyroid disease, currently on p.o. Keflex for 5 to 7 days, today is day number 6. The patient is also getting physical therapy. The patient is at risk for developing nosocomial infections. We will follow closely. Rico Arredondo MD
--- NOTE | 2017-01-13 05:51 | DS ---
DATE: 01/12/[address] Liu. SUBJECTIVE: The patient is a 51-year-old female seen sitting up in bed now changed to oral medication as per Dr. Kim with the patient now to be discharged home after visit with Dr. Waggoner, psychiatry. All medications that would be listed. She is other in no acute distress. PHYSICAL EXAMINATION: VITAL SIGNS: Temperature 98.1, pulse 72, respirations 16, blood pressure 103/64 and pulse ox 96%. HEENT: Impetiginous changes to her face have cleared. NECK: Supple. HEART: Regular rate. LUNGS: Clear. ABDOMEN: Soft and nontender, EXTREMITIES: No edema. SKIN: Warm and dry. NEUROLOGIC: Awake, alert and oriented x3. LABORATORY DATA: The patient's labs were not done; however, the most recent testing was within normal range. MEDICATIONS: The patient's medicines for discharge include Bactroban, Effexor-XR, propranolol, Keflex, nystatin, Synthroid, Xanax and Zanaflex. It should also be noted that she was given prescription for Suboxone by Dr. Waggoner with the patient to follow with Dr. Waggoner regarding this medication. Over the counter preparations include Bacid, vitamin B complex, multivitamin along with Tylenol as needed for mild pain. ASSESSMENT: Deconditioning, impetigo, group B Streptococcus urinary infection, history of Lyme serology in the past, history of depression, Leopoldo's thyroiditis, presyncopal episode improved. PLAN: This patient is to continue present medical regimen. Discharge the patient home with followup Dr. Liu in one weeks' time or earlier. Patient is also scheduled for a stress test as an outpatient by Dr. Moore. Alonso Mendez MD
[2017-01-14 04:34] LABS: (1-3)-B-D GLUCAN <31 pg/mL
== END 2017-01-12 15:59 | disposition home or self-care (01) | DRG 690 ==
LOC: TRCU 19:27
PROVIDERS: ADMIT Family Medicine; ATTEND Family Medicine
PROC: F07Z9ZZ Gait Training/Functional Ambulation Treatment (ICD-10-PCS; principal; 2017-01-09)
PROC: F07L6YZ Therapeutic Exercise Treatment of Musculoskeletal System - Lower Back / Lower Extremity using Other Equipment (ICD-10-PCS; 2017-01-09)
PROC: F08Z0ZZ Bathing/Showering Techniques Treatment (ICD-10-PCS; 2017-01-11)
DX: N39.0 Urinary tract infection, site not specified (principal); B95.1 Streptococcus, group B, as the cause of diseases classified elsewhere; N13.30 Unspecified hydronephrosis; F32.9 Major depressive disorder, single episode, unspecified; E06.3 Autoimmune thyroiditis; R53.82 Chronic fatigue, unspecified; F39 Unspecified mood [affective] disorder; L01.00 Impetigo, unspecified; D50.9 Iron deficiency anemia, unspecified; R00.2 Palpitations; R55 Syncope and collapse; Z86.19 Personal history of other infectious and parasitic diseases; Z93.6 Other artificial openings of urinary tract status; Z80.41 Family history of malignant neoplasm of ovary

== ENCOUNTER 2018-07-28 13:12 | Outpatient (CLI) | payer MEDICARE, BC | END 2018-07-28 13:13 | disposition home or self-care (01) | LOC: RAD 13:12 ==